=== PATIENT | female | born 1990 | race Caucasian/White ===

== ENCOUNTER 2017-10-17 09:57 | Emergency (ER) | payer OTHER ==
[2017-10-17 10:40] VITALS: BP 115/84; PULSE 76; TEMP 98.5; BMI 26.6
[2017-10-17] MEDS ORDERED: predniSONE 20 MG TABLET (UD) PO ONE (10:43)
[2017-10-17] MEDS ORDERED: ALBUTEROL SO4 2.5/IPRATROPIUM 0.5 INH SOL 3 ML VIAL.NEB. NEB ONE ×4 (10:43→12:05)
[2017-10-17] MEDS ORDERED: predniSONE 20 MG TABLET (UD) ONE (10:46)
--- NOTE | 2017-10-17 10:46 | PDOC ---
History of Present Illness - General Chief Complaint: Cold Symptoms Stated Complaint: COLD SYMPTOMS Time Seen by Provider: 10/17/17 10:25 History Source: Patient Exam Limitations: No Limitations - History of Present Illness Initial Comments: 10/17/17 10:43 Patient came to emergency department with complaints of persistent cough, fevers , headache and congested pain, and sore throat coughing. seen her PMD on Wednesday who prescribed promethazine and Zithromax. Has been taking and is on the last day today but does not feel she is improved. has been using all vwht-taa-lugouis medications including NyQuil and DayQuil ibuprofen for cough and cold and grandmother's recipes but still no improvement. Else at home is sick, is not a smoker no alcohol or other drug use Timing/Duration: reports: constant, getting worse Severity: reports: moderate Modifying Factors: improves with: albuterol inhaler Associated Symptoms: reports: chest pain/soreness, cough, nasal congestion, nasal drainage, sore throat, wheezing Past History - Travel Traveled outside of the country in the last 30 days: No Close contact w/someone who was outside of country & ill: No - Past Medical History Allergies/Adverse Reactions: Allergies Allergy/AdvReac Type Severity Reaction Status Date / Time iodine Allergy Verified 10/17/17 10:03 Penicillins Allergy Verified 10/17/17 10:03 sulfamethoxazole Allergy Verified 10/17/17 10:03 [From Bactrim] trimethoprim [From Bactrim] Allergy Verified 10/17/17 10:03 Home Medications: Ambulatory Orders Albuterol Sulfate Inhaler - [Ventolin HFA Inhaler -] 1 - 2 inh PO Q4H #1 inhaler 10/17/17 Cetirizine HCl [Zyrtec -] 10 mg PO DAILY #30 tablet 10/17/17 predniSONE [Deltasone -] 20 mg PO BID #8 tablet 10/17/17 Cancer: Yes (Osteosarcoma) COPD: No - Suicide/Smoking/Psychosocial Hx Smoking History: Never smoked Hx Alcohol Use: No Drug/Substance Use Hx: No Substance Use Type: Marijuana Hx Substance Use Treatment: No Respiratory Specific PMHX - Complaint Specific PMHX Bronchitis: No Pneumonia: No Review of Systems - Review of Systems Able to Perform ROS?: Yes Is the patient limited Romansh proficient: Yes Constitutional: Yes: Symptoms Reported HEENTM: Yes: See HPI, Nose Pain, Nose Congestion, Difficulty Swallowing. No: Symptoms Reported Respiratory: Yes: Symptoms reported, See HPI, Cough, Wheezing : No: Symptoms Reported Musculoskeletal: Yes: Symptoms Reported, See HPI, Joint Pain Integumentary: Yes: See HPI. No: Symptoms Reported All Other Systems: Reviewed and Negative *Physical Exam - Vital Signs Last Vital Signs Temp Pulse Resp BP Pulse Ox 98.5 F 76 15 115/84 98 10/17/17 10:04 10/17/17 10:04 10/17/17 10:04 10/17/17 10:10/17/17 10:04 - Physical Exam General Appearance: Yes: Nourished, Appropriately Dressed, Apparent Distress, Mild Distress HEENT: positive: ANT, TMs Normal (congested , landmarks easily visualized ), Rhinorrhea, Sinus Tenderness. negative: Pharynx Normal Neck: positive: Supple, Lymphadenopathy (R), Lymphadenopathy (L) Respiratory/Chest: positive: Chest Tender, Wheezing. negative: Lungs Clear, Normal Breath Sounds Gastrointestinal/Abdominal: positive: Normal Bowel Sounds, Soft Musculoskeletal: positive: Normal Inspection Extremity: positive: Normal Capillary Refill, Normal Inspection Integumentary: positive: Normal Color, Dry, Warm, Pale Neurologic: positive: prepared foods supervisor II-XII NML intact, Fully Oriented, Alert, Normal Mood/ Affect, Normal Response, Motor Strength 5/5 ED Treatment Course - RADIOLOGY Radiology Studies Ordered: Category Date Time Status CHEST PA & LAT [RAD] Stat Radiology 10/17/17 10:43 Ordered Progress Note - Progress Note Progress Note: ALLERGIC rhinitis with bronchitis. We will have complete antibiotics, and add prednisone and albuterol as well as antihistamines Medical Decision Making - Medical Decision Making 10/17/17 12:12 Chest x-ray negative for infiltrates or pathology, states feels slightly improved after DuoNeb nebs 2 and prednisone. We'll continue albuterol inhaler, short course of prednisone, have complete Zithromax and add antihistamine. Patient encouraged to follow up with PMD tomorrow for further evaluation and potential further treatment. *DC/Admit/Observation/Transfer Diagnosis at time of Disposition: Bronchitis Allergic rhinitis Qualifiers: Allergic rhinitis trigger: pollen Allergic rhinitis seasonality: seasonal Qualified Code(s): J30.1 - Allergic rhinitis due to pollen - Discharge Dispostion Condition at time of disposition: Stable Decision to Admit order: No - Referrals Referrals: Abram Cervantes MD [Primary Care Provider] - - Patient Instructions Printed Discharge Instructions: DI for Acute Bronchitis Additional Instructions: Rest, drink lots of fluids: Teas, water, soups, Pedialyte Saltwater gargles Steamy showers/seem to face break up mucus Avoid contact with others until fevers and cough resolved Lots of handwashing and good hygiene Continue [id number] medications for symptomatic relief Tylenol or Motrin for fever and pain Continue albuterol nebulizers every 4-6 hours for the next 2 days then as needed for continued cough Continue antihistamines daily until ALLERGY season is over Prednisone as directed until completed Followup with private physician in one to 2 days Return to emergency department / pediatric hospital for worsened symptoms, fevers, dehydration - Post Discharge Activity Forms/Work/School Notes: Back to Work
[2017-10-17] MEDS ORDERED: IBUPROFEN 600 MG TABLET (FP) PO ONE ×2 (11:01)
== END 2017-10-17 12:17 | disposition home or self-care (01) ==
LOC: JER 09:57 → JERFT 09:57
PROC: 3E0F7GC Introduction of Other Therapeutic Substance into Respiratory Tract, Via Natural or Artificial Opening (ICD-10-PCS; principal; 2017-10-17)
PROC: 3E0F7GC Introduction of Other Therapeutic Substance into Respiratory Tract, Via Natural or Artificial Opening (ICD-10-PCS; 2017-10-17)
DX: J20.9 Acute bronchitis, unspecified (principal); J30.1 Allergic rhinitis due to pollen
CPT/HCPCS: 71046-TC-FY; 84703; 94640; 99281-25; J7620

== ENCOUNTER 2018-06-28 12:51 | Emergency (ER) | payer OTHER ==
[2018-06-28 13:14] VITALS: BP 134/74; PULSE 80; TEMP 98.3; BMI 27.3
--- NOTE | 2018-06-28 14:05 | PDOC ---
History of Present Illness <Shelby Corcoran - Last Filed: 06/28/18 18:55> - History of Present Illness Initial Comments: 06/28/18 14:03 28 yo F with h/o left hip osteosarcoma s/p arthroplasty, who p/w vaginal bleed, lower abdominal pain. Patient reports dark red blood, and bright red blood beginning 06/25/18, with absent clotting. Also endorses lower abdominal and pelvic cramping pain intermittently, with Reports last LMP 06/11/18. Cramping consistent with typical menstrual cramping. Denies vaginal itching/burning. Patient denies RUIZ, vision change, palpitations, cough, wheezing, leg pain/ swelling, F,C, CP, SOB, urinary complaints, hematruia, BPR, diarrhea, constipation, lightheadedness, weakness, sensory changes. PMHx: as noted above. Denies h/o abdominal surgery. ROS: as noted SHx: + Recreational marijuanna use. Denies tobacco use. Social Etoh. Patient sexually active with one male partner. Denies condom/barrier protection. Denies h/o STIs. , aborta 2. IUD 4 years. Allergies: NKDA <Med Eaton - Last Filed: 06/28/18 19:50> - General Chief Complaint: Vaginal Bleeding Stated Complaint: Vaginal Bleeding Time Seen by Provider: 06/28/18 13:44 Past History <Shelby Corcoran - Last Filed: 06/28/18 18:55> - Past Medical History Cancer: Yes (Osteosarcoma) COPD: No - Immunization History Immunization Up to Date: Yes - Suicide/Smoking/Psychosocial Hx Smoking History: Never smoked Information on smoking cessation initiated: No Hx Alcohol Use: No Drug/Substance Use Hx: Yes (MARIJUANA) Substance Use Type: Marijuana Hx Substance Use Treatment: No <Med Eaton - Last Filed: 06/28/18 19:50> - Past Medical History Allergies/Adverse Reactions: Allergies Allergy/AdvReac Type Severity Reaction Status Date / Time iodine Allergy Verified 06/28/18 13:10 Penicillins Allergy Verified 06/28/18 13:10 sulfamethoxazole Allergy Verified 06/28/18 13:10 [From Bactrim] trimethoprim [From Bactrim] Allergy Verified 06/28/18 13:10 Home Medications: Ambulatory Orders Albuterol Sulfate Inhaler - [Ventolin HFA Inhaler -] 1 - 2 inh PO Q4H #1 inhaler 10/17/17 Cetirizine HCl [Zyrtec -] 10 mg PO DAILY #30 tablet 10/17/17 predniSONE [Deltasone -] 20 mg PO BID #8 tablet 10/17/17 Review of Systems - Review of Systems Comments:: 06/28/18 14:03 GENERAL/CONSTITUTIONAL: No fever or chills. No weakness. HEAD, EYES, EARS, NOSE AND THROAT: No change in vision. No ear pain or discharge. No sore throat. CARDIOVASCULAR: No chest pain or shortness of breath RESPIRATORY: No cough, wheezing, or hemoptysis. GASTROINTESTINAL: No nausea, vomiting, diarrhea or constipation. GENITOURINARY: + Abdominal pain, vaginal bleeding. No dysuria, frequency, or change in urination. MUSCULOSKELETAL: No joint or muscle swelling or pain. No neck or back pain. SKIN: No rash NEUROLOGIC: No headache, vertigo, loss of consciousness, or change in strength/ sensation. ENDOCRINE: No increased thirst. No abnormal weight change HEMATOLOGIC/LYMPHATIC: No anemia, easy bleeding, or history of blood clots. ALLERGIC/IMMUNOLOGIC: No hives or skin allergy. <Med Eaton - Last Filed: 06/28/18 19:50> *Physical Exam - Vital Signs Last Vital Signs Temp Pulse Resp BP Pulse Ox 98.3 F 80 16 134/74 100 06/28/18 13:10 06/28/18 13:10 06/28/18 13:10 06/28/18 13:10 06/28/18 13:10 <Shelby Corcoran - Last Filed: 06/28/18 18:55> - Vital Signs Last Vital Signs Temp Pulse Resp BP Pulse Ox 98.3 F 80 16 134/74 100 06/28/18 13:10 06/28/18 13:10 06/28/18 13:10 06/28/18 13:10 06/28/18 13:10 - Physical Exam Comments: 06/28/18 14:04 GENERAL: Awake, alert, and fully oriented, in no acute distress HEAD: No signs of trauma, normocephalic, atraumatic EYES: PERRLA, EOMI, sclera anicteric, conjunctiva clear ENT: Auricles normal inspection, hearing grossly normal, nares patent, oropharynx clear without exudates. Moist mucosa NECK: Normal ROM, supple, no lymphadenopathy, JVD, or masses LUNGS: No distress, speaks full sentences, clear to auscultation bilaterally HEART: Regular rate and rhythm, normal S1 and S2, no murmurs, rubs or gallops, peripheral pulses normal and equal bilaterally. ABDOMEN: Soft, nontender, normoactive bowel sounds. No guarding, no rebound. No masses GENITOURINARY: Nml appearing external genitalia. cervical os closed.+ blood in vaginal vault. No pooling. Absent discharge in vaginal vault. absent adenexal ttp. neg CMT on BM. Chaperoned by September PGY3 EXTREMITIES : Normal inspection, Normal range of motion, no edema. No clubbing or cyanosis. SKIN: Warm, Dry, normal turgor, no rashes or lesions noted <Med Eaton - Last Filed: 06/28/18 19:50> Moderate Sedation - Procedure Monitoring Vital Signs: Procedure Monitoring Vital Signs Temperature 98.3 F 06/28/18 13:10 Pulse Rate 80 06/28/18 13:10 Respiratory Rate 16 06/28/18 13:10 Blood Pressure 134/74 06/28/18 13:10 O2 Sat by Pulse Oximetry (%) 100 06/28/18 13:10 <Shelby Corcoran - Last Filed: 06/28/18 18:55> - Procedure Monitoring Vital Signs: Procedure Monitoring Vital Signs Temperature 98.3 F 06/28/18 13:10 Pulse Rate 80 06/28/18 13:10 Respiratory Rate 16 06/28/18 13:10 Blood Pressure 134/74 06/28/18 13:10 O2 Sat by Pulse Oximetry (%) 100 06/28/18 13:10 <Med Eaton - Last Filed: 06/28/18 19:50> ED Treatment Course - LABORATORY CBC & Chemistry Diagram: 06/28/18 15:28 06/28/18 15:28 - ADDITIONAL ORDERS Additional order review: Laboratory Results 06/28/18 06/28/18 16:16 15:28 Sodium 138 Potassium 3.9 Chloride 103 Carbon Dioxide 27 Anion Gap 8 BUN 12 Creatinine 0.8 Creat Clearance w eGFR > 60 Random Glucose 89 Calcium 9.0 Total Bilirubin 0.5 AST 29 ALT 33 Alkaline Phosphatase 86 Total Protein 8.1 Albumin 4.2 Urine Color Ltyellow Urine Appearance Clear Urine pH 7.0 Ur Specific [place] 1.025 Urine Protein Negative Urine Glucose (UA) Negative Urine Ketones Negative Urine Blood 3+ H Urine Nitrite Negative Urine Bilirubin Negative Urine Urobilinogen 2.0 H Ur Leukocyte Esterase Negative Urine HCG, Qual Negative 06/28/18 15:28 RBC 4.91 MCV 76.5 L MCHC 32.5 RDW 14.3 MPV 8.3 D Neutrophils % 56.8 Lymphocytes % 31.9 Monocytes % 7.9 Eosinophils % 2.9 Basophils % 0.5 - Medications Given in the ED: ED Medications Discontinued Medications Generic Name Dose Route Start Last Admin Trade Name Yogi PRN Reason Stop Dose Admin Acetaminophen 1,000 mg 06/28/18 14:28 06/28/18 15:35 Ofirmev Injection - IVPB 06/28/18 14:29 1,000 mg ONCE ONE Administration Sodium Chloride 1,000 mls @ 1,000 mls/hr 06/28/18 14:28 06/28/18 15:35 Normal Saline - IV 06/28/18 15:27 1,000 mls/hr ASDIR STA Administration Ondansetron HCl 4 mg 06/28/18 14:28 06/28/18 15:35 Zofran Injection IVPUSH 06/28/18 14:29 4 mg ONCE ONE Administration <Shelby Corcoran - Last Filed: 06/28/18 18:55> - LABORATORY CBC & Chemistry Diagram: 06/28/18 15:28 06/28/18 15:28 - ADDITIONAL ORDERS Additional order review: 06/28/18 18:14 Pelvis ultrasound, transabdominal and transvaginal LMP is 06/07/2018 No prior is available for comparison. The uterus is enlarged measuring 11.3 x 7.7 cm in sagittal and AP dimension. There is a large mass lesion with heterogeneous echotexture at the fundus measuring 8 x 6.5 cm compatible with a fibroid. A smaller right lateral hypoechoic mass is present measuring 2.4 cm compatible with a fibroid. Notes is made of an intrauterine device in the lower uterine segment. No gross intrauterine gestation sac is identified. Partial visualization of the endometrial stripe measuring 4.5 mm in thickness. There is a complex Nabothian cyst in the cervix measuring 1.3 x 0.9 cm. Normal appearing right ovary measuring 4.8 x 2 cm with a few small simple cysts/follicles and normal vascular flow, arterial and venous. Normal-appearing left ovary measuring 3.5 x 1.5 cm with a few small simple cysts/follicles and normal vascular flow, arterial and venous. There is no free fluid in the cul-de-sac Impression: Enlarged fibroid uterus, as described above. Largest fibroid is at the fundus measuring 8 cm in maximum dimension with another smaller right lateral myometrial mass/fibroid present, as described above. Partial visualization of the endometrial stripe without thickening. An intrauterine device is present in the in the lower uterine segment with apparent extension to the cervical canal. Correlate clinically for further evaluation. No intrauterine gestation sac is identified. No adnexal mass is seen. Correlation with serial quantitative serum beta hCG is recommended to determine further evaluation and follow-up, in view of the clinical history. Reported By: Steven Serrato MD 06/28/181751 Med Eaton Technologist: Latasha Bailey Transcribed Date /Time: 06/28/181751 Box Blank Machine Operator Helper: Steven Serrato Printed Date/Time: By: <Med Eaton - Last Filed: 06/28/18 19:50> Medical Decision Making - Medical Decision Making 06/28/18 14:33 28 yo F with h/o left hip osteosarcoma s/p arthroplasty, who p/w vaginal bleed, lower abdominal pain. Vitals wnl, AF, A&Ox3. Will asses for IUP. Will consider ectopic , ovarian torsion, PID, cystitis. No evidence of colitis, pyelonephrits, obstructive uropathy/nephrolithiasis. ED Course: CBC,CMP,UA,UCX,HCG,GC 06/28/18 15:30 Toradol 06/28/18 17:09 CMP: Unremarkable 06/28/18 18:15 TVUS: Enlarged fibroid uterus, as described above. Largest fibroid is at the fundus measuring 8 cm in maximum dimension with another smaller right lateral myometrial mass/fibroid present, as described above. Partial visualization of the endometrial stripe without thickening. An intrauterine device is present in the in the lower uterine segment with apparent extension to the cervical canal. Correlate clinically for further evaluation. No intrauterine gestation sac is identified. No adnexal mass is seen. Correlation with serial quantitative serum beta hCG is recommended to determine further evaluation and follow-up, in view of the clinical history. Patient advised to f/u with navy senior officer 06/28/18 19:50 UA: Neg HCG: Neg Patient pain improved stable for d/c with return precautions. <Med Eaton - Last Filed: 06/28/18 19:50> *DC/Admit/Observation/Transfer - Discharge Dispostion Decision to Admit order: No <Shelby Corcoran - Last Filed: 06/28/18 18:55> - Attestations Physician Attestion: 06/28/18 14:04 I attest to the information provided in this note. <Med Eaton - Last Filed: 06/28/18 19:50> Diagnosis at time of Disposition: Abnormal uterine and vaginal bleeding, unspecified - Discharge Dispostion Disposition: HOME Condition at time of disposition: Good - Referrals Referrals: Abram Cervantes MD [Primary Care Provider] - Thuy Alvarenga MD [Staff Physician] - - Patient Instructions Printed Discharge Instructions: DI for Uterine Fibroids Additional Instructions: Please return to the emergency department with any new or worsening symptoms or concerns. Please follow up with your primary care physician within 72 hours. Please follow up with Ob/ Hand Etcher Helper within 72 hours for IUD placement as discussed. - Post Discharge Activity
--- NOTE | 2018-06-28 14:07 | PDOC ---
Attending Attestation - HPI HPI: 06/28/18 15:30 The patient is a 28 year old female with a significant PMH of left hip osteosarcoma who presents to the emergency department with vaginal bleeding and associated lower abdominal pain. Patient reports that 3 days ago she noticed dark brown blood, which is now bright red. Patient was concerned as her LMP was on 06/07/18. Patient states the lower abdominal pain is radiating to the pelvic pain. Patient reports the lower abdominal pain is similar in severity to her menstrual cramps, but reports the vaginal bleeding is heavier than normal menstrual cycles. Patient has been using a superplus tampon every 2 hours. Patient is also complaining of nausea and 1 episode of NB, NB vomit 3 days ago. Patient has an IUD in place for the past 5 years. She is sexually active with 1 partner, and they occasionally use condoms. Patient has 2 abortions in the past. No prior abdominal surgeries. The patient denies chest pain, shortness of breath, headache and dizziness. Denies fever, chills, nausea, vomit, diarrhea and constipation. Denies dysuria, frequency, urgency and hematuria. Allergies: NKA Past surgical history: None reported. Social history: No reported alcohol, drug or cigarette use. PCP: Dr. Abram Cervantes - Physicial Exam PE: 06/28/18 15:41 ADULT EXAM GENERAL: Awake, alert, and fully oriented, in no acute distress LUNGS: Breath sounds equal, clear to auscultation bilaterally. No wheezes, and no crackles HEART: Regular rate and rhythm, normal S1 and S2, no murmurs, rubs or gallops ABDOMEN: Soft, nontender, normoactive bowel sounds. No guarding, no rebound. No masses EXTREMITIES: Normal range of motion, no edema. No clubbing or cyanosis. No cords, erythema, or tenderness NEUROLOGICAL: Cranial nerves II through XII grossly intact. Normal speech, normal gait SKIN: Warm, Dry, normal turgor, no rashes or lesions noted.
[2018-06-28] MEDS ORDERED: ACETAMINOPHEN 1000 MG/100 ML VIAL (NON FORMULARY) IVPB ONE (14:28)
[2018-06-28] MEDS ORDERED: ONDANSETRON 4 MG/2 ML VIAL IVPUSH ONE (14:28)
[2018-06-28] MEDS ORDERED: SODIUM CHLORIDE 1,000 ML IV STA (14:28)
[2018-06-28] MEDS ORDERED: ONDANSETRON 4 MG/2 ML VIAL ONE (15:25)
[2018-06-28] MEDS ORDERED: ACETAMINOPHEN INJECTION 100 ML IVPB ONE (15:25)
[2018-06-28] MEDS ORDERED: KETOROLAC TROMETHAMINE 15 MG/ML VIAL IVPUSH ONE (15:29)
[2018-06-28] MEDS ORDERED: KETOROLAC TROMETHAMINE 30 MG/1 ML VIAL IVPUSH ONE (15:30)
[2018-06-28 15:38] LABS: BASO % 0.5 % (0-2.0); EOS % 2.9 % (0-4.5); HEMATOCRIT 37.5 % (32.4-45.2); HEMOGLOBIN 12.2 GM/dL (10.7-15.3); LYMPH % 31.9 % (8-40); MCH 24.8 pg (25.7-33.7); MCHC 32.5 g/dl (32.0-36.0); MEAN CELL VOLUME 76.5 fl (80-96); MEAN PLT VOLUME 8.3 fl (7.5-11.1); MONO % 7.9 % (3.8-10.2); NEUT % 56.8 % (42.8-82.8); PLATELET COUNT 263 K/MM3 (134-434); RBC 4.91 M/mm3 (3.60-5.2); RDW 14.3 % (11.6-15.6); WHITE BLOOD COUNT 4.9 K/mm3 (4.0-10.0)
[2018-06-28 16:06] LABS: ALBUMIN 4.2 g/dl (3.4-5.0); ALK PHOS 86 U/L (45-117); ANION GAP 8 MMOL/L (8-16); BILIRUBIN,TOTAL 0.5 mg/dL (0.2-1); BLOOD UREA NITROGEN 12 mg/dL (7-18); CHLORIDE 103 mmol/L (98-107); CO2 27 mmol/L (21-32); CREATININE 0.8 mg/dL (0.55-1.3); GLUCOSE,RANDOM 89 mg/dL (74-106); POTASSIUM 3.9 mmol/L (3.5-5.1); SGOT/AST 29 U/L (15-37); SGPT/ALT 33 U/L (13-61); SODIUM 138 mmol/L (136-145); TOT PROT 8.1 g/dl (6.4-8.2)
[2018-06-28 18:46] LABS: URINE APPEARANCE CLEAR; URINE BILIRUBIN NEGATIVE (<2.0 mg/dL); URINE COLOR LTYELLOW; URINE GLUCOSE (UA) NEGATIVE (NEGATIVE); URINE KETONE NEGATIVE (NEGATIVE); URINE LEUK ESTERASE NEGATIVE (NEGATIVE); URINE NITRITE NEGATIVE (NEGATIVE); URINE PROTEIN NEGATIVE (NEGATIVE)
[2018-06-28 18:48] LABS: HCG,QUALITATIVE URINE Negative
[2018-06-28] MEDS ORDERED: KETOROLAC TROMETHAMINE 30 MG/1 ML VIAL ONE (18:49)
[2018-06-28 18:57] LABS: EPI CELLS RARE /HPF (FEW)
== END 2018-06-28 20:15 | disposition home or self-care (01) ==
LOC: JER 12:51
DX: D25.9 Leiomyoma of uterus, unspecified (principal)
CPT/HCPCS: 36415; 76830-TC; 80053; 81003; 81015; 84703; 85025; 87086; 87491; 87591; 99281-25; J0131; J7030

== ENCOUNTER 2018-07-20 05:03 | Inpatient (IN) | payer OTHER ==
[2018-07-18 15:35] VITALS: BMI 30.7
--- NOTE | 2018-07-20 06:51 | HP ---
Admitting History and Physical - Past Medical History ASTROBIOLOGIST: Yes: Other (Bertolott's syndrome) Cardiovascular: Yes: AFIB, Aneurysm. No: Aortic Insufficiency, Aortic Stenosis , CAD, CHF, Deep Vein Thrombosis, HTN, Hyperlipdemia, [place], Mitral Insufficiency, Mitral Stenosis, Murmur, Pulmonary Hypertension, Other Gastrointestinal: Yes: Other (NAUSEA FOR TWO WEEKS ASSOCIATED WITH VERTIGO) ...LMP: 07/13/18 ...LMP Comment: "continuous bleeding" Heme/Onc: Yes: Other (Osteocarcoma) Musculoskeletal: Yes: Chronic low back pain, Other (BERTOLOTTI'S SYNDROME) ENT: Yes: Other (VERTIGO FOR 2 WEEKS FOLLOWED BY NAUSEA, RESOLVES WITH VOMITING AND LAYING FLAT FOR 10 TO 15 MINUTES. ) - Past Surgical History Past Surgical History: Yes: None - Smoking History Smoking history: Never smoked Have you smoked in the past 12 months: No - Alcohol/Substance Use Hx Alcohol Use: Yes (socially) History of Substance Use: reports: Marijuana Home Medications - Allergies Allergies/Adverse Reactions: Allergies Allergy/AdvReac Type Severity Reaction Status Date / Time iodine Allergy "can't Verified 07/18/18 15:36 breath" Penicillins Allergy "rash" Verified 07/18/18 15:36 sulfamethoxazole Allergy "rash" Verified 07/18/18 15:36 [From Bactrim] trimethoprim [From Bactrim] Allergy Verified 07/18/18 15:36 - Home Medications Home Medications: Ambulatory Orders NK [No Known Home Medication] 07/18/18 Family Disease History - Family Disease History Family Disease History: Other: Mother (MULTIPLE SCLEROSIS/VERTIGO)
--- NOTE | 2018-07-20 10:12 | HP ---
Admitting History and Physical - Admission Chief Complaint: Abdominal and back pain, fibroids History of Present Illness: PT is 28 y/o femsarah who presented to the ER last month with abdominal pain and upon ultrasound examination was found to have a large fundal uterine fibroid. Pt was seen in my office for evaluation and she was counseled on options and elected to undergo abdominal myomectomy. The patient has h/o osteosarcoma 10 years ago and she is s/p chemotherapy. SHe also has h/o knee surgery and hip surgery. Otherwise she denied any medical history. History Source: Patient, Medical Record Limitations to Obtaining History: No Limitations - Past Medical History Cardiovascular: No: AFIB, Aneurysm, Aortic Insufficiency, Aortic Stenosis, CAD, CHF, Deep Vein Thrombosis, HTN, Hyperlipdemia, [place], Mitral Insufficiency, Mitral Stenosis, Murmur, Pulmonary Hypertension, Other Pulmonary: No: Asthma Gastrointestinal: No: GERD Reproductive: Yes: Fibroids. No: Ectopic ...LMP: 07/13/18 ...: No ...: 0 ...Para: 0 Heme/Onc: Yes: Other (Osteocarcoma) Musculoskeletal: Yes: Chronic low back pain, Other (h/o osteosarcoma as teen, s/ p chemotherapy) - Past Surgical History Additional Past Surgical History: knee and hip surgery - Smoking History Smoking history: Never smoked Have you smoked in the past 12 months: No - Alcohol/Substance Use Hx Alcohol Use: Yes (socially) History of Substance Use: reports: Marijuana - Social History ADL: Independent History of Recent Travel: No Home Medications - Allergies Allergies/Adverse Reactions: Allergies Allergy/AdvReac Type Severity Reaction Status Date / Time iodine Allergy "can't Verified 07/20/18 10:35 breath" Penicillins Allergy "rash" Verified 07/20/18 10:35 sulfamethoxazole Allergy "rash" Verified 07/20/18 10:35 [From Bactrim] trimethoprim [From Bactrim] Allergy Verified 07/20/18 10:35 - Home Medications Home Medications: Ambulatory Orders NK [No Known Home Medication] 07/18/18 Family Disease History - Family Disease History Family Disease History: Other: Mother (MULTIPLE SCLEROSIS/VERTIGO) Review of Systems - Review of Systems Constitutional: reports: No Symptoms Eyes: reports: No Symptoms HENT: reports: No Symptoms Neck: reports: No Symptoms Cardiovascular: reports: No Symptoms Respiratory: reports: No Symptoms Genitourinary: reports: Vaginal Bleeding, Other (pelvic pain and back pain) Breasts: reports: No Symptoms Reported Musculoskeletal: reports: No Symptoms Integumentary: reports: No Symptoms Neurological: reports: No Symptoms Psychiatric: reports: No Symptoms Physical Examination Vital Signs: Vital Signs Temperature 98.3 F 07/20/18 09:47 Pulse Rate 76 07/20/18 09:47 Respiratory Rate 16 07/20/18 09:47 Blood Pressure 119/80 07/20/18 09:47 O2 Sat by Pulse Oximetry (%) 99 07/20/18 09:46 Constitutional: Yes: Well Nourished, No Distress, Calm Eyes: Yes: Conjunctiva Clear, EOM Intact HENT: Yes: Atraumatic, Normocephalic Neck: Yes: Trachea Midline Cardiovascular: Yes: Regular Rate and Rhythm Respiratory: Yes: Regular Gastrointestinal: Yes: Normal Bowel Sounds Extremities: Yes: WNL Edema: No Neurological: Yes: Alert, Oriented Psychiatric: Yes: Alert, Oriented Imaging - Results Ultrasound: Report Reviewed, Image Reviewed (from 06/28/18) Problem List - Problems (1) Abnormal uterine and vaginal bleeding, unspecified Code(s): N93.9 - ABNORMAL UTERINE AND VAGINAL BLEEDING, UNSPECIFIED (2) History of osteosarcoma Code(s): Z85.830 - PERSONAL HISTORY OF MALIGNANT NEOPLASM OF BONE (3) Leiomyoma Code(s): D21.9 - BENIGN NEOPLASM OF CONNECTIVE AND OTHER SOFT TISSUE, UNSP Assessment/Plan Plan for abdominal myomectomy risks/benefits/alternatives discussed risk of bleeding/infection/damage to nearby organs or surrounding structures discussed with pt in detail, pt aware questions answered consents signed 07/18/18 NPO arguello anesthesia to evaluate
[2018-07-20] MEDS ORDERED: ROCURONIUM BROMIDE 50 MG/5 ML VIAL ONE (11:32)
[2018-07-20] MEDS ORDERED: fentaNYL CITRATE 250 MCG/5 ML VIAL ONE ×2 (11:32→12:47)
[2018-07-20] MEDS ORDERED: MIDAZOLAM HCL 2 MG/2 ML SINGLE DOSE VIAL ONE ×2 (11:32→11:38)
[2018-07-20] MEDS ORDERED: PROPOFOL 20 ML ONE ×2 (11:32)
[2018-07-20] MEDS ORDERED: LIDOCAINE HCL/PF 2% SDV 5ML VIAL ONE (11:32)
[2018-07-20] MEDS ORDERED: ROPIVACAINE HCL 0.5% 30ML VIAL ONE (11:36)
[2018-07-20] MEDS ORDERED: oxyCODONE HCL 5 MG TABLET PO PRN (11:37)
[2018-07-20] MEDS ORDERED: CLINDAMYCIN 900 MG PREMIX BAG IVPB ONE (12:36)
[2018-07-20] MEDS ORDERED: CLINDAMYCIN PHOSPHATE 600 MG/4 ML VIAL ONE (12:36)
[2018-07-20] MEDS ORDERED: DEXAMETHASONE SOD PHOSPHATE 4 MG/1 ML VIAL ONE (13:04)
[2018-07-20] MEDS ORDERED: GLYCOPYRROLATE 0.2 MG/1 ML VIAL ONE (13:04)
[2018-07-20] MEDS ORDERED: NEOSTIGMINE METHYLSULFATE 0.5 MG/ML - 10 ML MDV ONE (13:04)
[2018-07-20] MEDS ORDERED: ONDANSETRON 4 MG/2 ML VIAL IVPUSH PRN (13:59)
[2018-07-20] MEDS ORDERED: LACTATED RINGERS SOLUTION 1,000 ML IV SCH (14:00)
[2018-07-20] MEDS ORDERED: HYDROmorphone *PCA* 10MG/50ML DISP.SYRIN PCA SCH (14:00)
--- NOTE | 2018-07-20 14:20 | OP ---
Operative Note - Note: Operative Date: 07/20/18 Pre-Operative Diagnosis: Leiomyoma uterus Operation: Abdominal myomectomy Post-Operative Diagnosis: Same as Pre-op Surgeon: Yumiko Morgan Heel Gouger: Tawny Beltrán Anesthesiologist/EMERGENCY MEDICAL TECHNICIAN/DRIVER: Chela Perkins Anesthesia: General Specimens Removed: uterine fibroids x 3 Estimated Blood Loss (mls): 300 Drains, Volume Out (mls): 300 (urine) Fluid Volume Replaced (mls): 1,500 Operative Report Dictated: Yes
--- NOTE | 2018-07-20 14:21 | SURG ---
Surgery Master [address] Security Note Master [address] Security: Tawny Beltrán PA-C Date of Service: 07/20/18 Diagnosis: Leiomyoma uterus Procedure: abdominal myomectomy I was present for the entirety of the operative procedure. For further detail, please refer to operative report. Visit type - Case Type Case Type: Scheduled - Emergency Emergency Visit: No - New patient This patient is new to me today: Yes Date on this admission: 07/20/18
[2018-07-20] MEDS ORDERED: PCA PUMP KEY 1 EACH EACH ONE (15:55)
[2018-07-20 18:56] LABS: BASO % 0.1 % (0-2.0); EOS % 0.1 % (0-4.5); HEMATOCRIT 31.1 % (32.4-45.2); HEMOGLOBIN 10.2 GM/dL (10.7-15.3); LYMPH % 4.9 % (8-40); MCHC 32.8 g/dl (32.0-36.0); MEAN CELL VOLUME 76.2 fl (80-96); MEAN PLT VOLUME 8.5 fl (7.5-11.1); MONO % 4.8 % (3.8-10.2); NEUT % 90.1 % (42.8-82.8); PLATELET COUNT 212 K/MM3 (134-434); RBC 4.08 M/mm3 (3.60-5.2); RDW 13.7 % (11.6-15.6); WHITE BLOOD COUNT 11.3 K/mm3 (4.0-10.0)
[2018-07-20] MEDS: CLINDAMYCIN 600MG PREMIX IVPB 600 MG/50 ML BAG IVPB SCH (19:48)
[2018-07-21] MEDS: IBUPROFEN 800 MG/8 ML IJ IVPB PRN ×2 (02:28→13:11)
[2018-07-21] MEDS: CLINDAMYCIN 600MG PREMIX IVPB 600 MG/50 ML BAG IVPB SCH (03:46)
[2018-07-21 07:22] LABS: BASO % 0.2 % (0-2.0); EOS % 0.2 % (0-4.5); HEMATOCRIT 28.8 % (32.4-45.2); HEMOGLOBIN 9.3 GM/dL (10.7-15.3); LYMPH % 16.3 % (8-40); MCH 24.5 pg (25.7-33.7); MCHC 32.2 g/dl (32.0-36.0); MEAN CELL VOLUME 76.2 fl (80-96); MEAN PLT VOLUME 8.5 fl (7.5-11.1); MONO % 13.3 % (3.8-10.2); PLATELET COUNT 209 K/MM3 (134-434); RBC 3.79 M/mm3 (3.60-5.2); RDW 14.2 % (11.6-15.6); WHITE BLOOD COUNT 7.9 K/mm3 (4.0-10.0)
[2018-07-21 08:07] LABS: ALBUMIN 3.2 g/dl (3.4-5.0); ALK PHOS 55 U/L (45-117); ANION GAP 6 MMOL/L (8-16); BILIRUBIN,TOTAL 0.8 mg/dL (0.2-1); BLOOD UREA NITROGEN 10 mg/dL (7-18); CALCIUM 8.4 mg/dL (8.5-10.1); CHLORIDE 100 mmol/L (98-107); CO2 28 mmol/L (21-32); CREATININE 0.6 mg/dL (0.55-1.3); GLUCOSE,RANDOM 85 mg/dL (74-106); POTASSIUM 3.7 mmol/L (3.5-5.1); SGOT/AST 19 U/L (15-37); SGPT/ALT 13 U/L (13-61); SODIUM 134 mmol/L (136-145); TOT PROT 6.1 g/dl (6.4-8.2)
--- NOTE | 2018-07-21 09:04 | PN ---
Progress Note (short form) - Note Progress Note: Surgery POD #1 Abdominal Myomectomy seen ans examined at bedside. Patient states her pain is controlled but she is having a fair amount of gas pain. Her arguello has been removed and she is voiding. Sh has been OOB ambulating without assistance and tolerating her clear liquid diet. Vital Signs Temp 98 F 07/21/18 06:00 Pulse 98 H 07/21/18 06:00 Resp 18 07/21/18 06:00 BP 132/76 07/21/18 06:00 Pulse Ox 98 07/20/18 21:00 Intake & Output 07/20/18 07/20/18 07/21/18 11:59 23:59 11:59 Intake Total 2150 1450 Output Total 1650 3000 Balance 500 -1550 Intake: IV 1900 1200 Lactated Ringers Solution 1200 1,000 ml @ 125 mls/hr IV ASDIR DAVY Rx#: [id number] IVPB 50 250 Oral 200 Output: Urine 1250 3000 Arguello 750 3000 Estimated Blood Loss 400 Other: Voiding Method Indwelling Catheter CBC, BMP 07/21/18 06:07 07/21/18 06:07 PE: A&Ox3, NAD Unlabored resp on RA ABD: obese, soft, ND , with mild incisional tenderness and tenderness to palpation across the lower quadrants appropriate to status. Incision C/D/I with steris strips in place and surrounding tissue intact with no tracking erythema, edema, collection or d/c. Problem List - Problems (1) Leiomyoma Assessment/Plan: POD #1 abdominal myomectomy doing well. 1) Advance to regular diet 2) OOB as tolerated 3) Encourage IS 4) D/c planning for home today if she tolerated diet. Evaluation and plan discussed with Dr Morgan. Code(s): D21.9 - BENIGN NEOPLASM OF CONNECTIVE AND OTHER SOFT TISSUE, UNSP
[2018-07-21] MEDS: SIMETHICONE 80 MG TAB.CHEW (FP) PO PRN ×3 (09:30→23:21)
[2018-07-21] MEDS: ENOXAPARIN NA (PORCINE) 40 MG/0.4 ML DISP.SYRIN SQ SCH (09:31)
[2018-07-21] MEDS ORDERED: PCA PUMP KEY 1 EACH EACH ONE (09:54)
[2018-07-21] MEDS: ACETAMINOPHEN 325 MG TABLET (FP) PO PRN ×3 (11:33→23:21)
[2018-07-21] MEDS: oxyCODONE HCL 5 MG TABLET PO PRN ×3 (11:33→23:22)
[2018-07-21] MEDS: LACTATED RINGERS SOLUTION 1,000 ML IV SCH ×2 (12:00)
[2018-07-21] MEDS ORDERED: BISACODYL 10 MG SUPP.RECT PR ONE (14:35)
[2018-07-21] MEDS: IBUPROFEN 600 MG TABLET (FP) PO PRN (19:42)
[2018-07-22] MEDS: IBUPROFEN 600 MG TABLET (FP) PO PRN (02:03)
[2018-07-22] MEDS: ACETAMINOPHEN 325 MG TABLET (FP) PO PRN ×2 (04:15→10:09)
[2018-07-22] MEDS: oxyCODONE HCL 5 MG TABLET PO PRN (04:16)
[2018-07-22] MEDS: SIMETHICONE 80 MG TAB.CHEW (FP) PO PRN ×2 (04:17→10:12)
[2018-07-22] MEDS ORDERED: SODIUM PHOSPHATE/NA BIPHOS 133 ML ENEMA PR ONE (08:17)
--- NOTE | 2018-07-22 08:20 | PN ---
Progress Note (short form) - Note Progress Note: POD 2, S/p open abdominal myomectomy Pt seen and examined on AM rounds. Endorses abdominal pain from surgical site as well as discomfort from constipation. No Bm x 5 days, requesting enema. Tolerating clears, has been oob to the restroom. Passed flatus x 1. Denies cp/ sob, n/v/d, calf pain. Vital Signs Temp 98.2 F 07/22/18 10:00 Pulse 82 07/22/18 10:00 Resp 20 07/22/18 10:00 BP 112/64 07/22/18 10:00 Pulse Ox 98 07/20/18 21:00 Intake & Output 07/21/18 07/22/18 07/22/18 23:59 11:59 23:59 Intake Total 1250 Output Total 300 Balance -300 1250 Intake: IV 1250 Lactated Ringers Solution 1250 1,000 ml @ 125 mls/hr IV ASDIR DAVY Rx#: [id number] Output: Urine 300 Void 300 Other: Voiding Method Toilet # Unmeasured Voids Void 1 1 CBC, BMP 07/21/18 06:07 07/21/18 06:07 Gen: awake, alert, nad Resp: cta b/l anteriorly, unlabored on RA CV: rrr, s1s2 Abdo: soft, slightly distended, + ttp around incision site (appropriate to status), dressing c/d/i, incision c/d/i with no erythema or drainage. 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 Afebrile, vss. Labs stable Constipation, no BM x 5 days. S/P suppository last night. -Fleet enema ordered -OOB ambulating -Pain regimen as ordered -D/c plan per attending d/w attending Dr Morgan
--- NOTE | 2018-07-22 09:08 | PN ---
Progress Note, Physician Chief Complaint: Pt seen/examined and doing well overall. Ambulating, voiding, passed flatus X 1 s/p suppository. no VB. Hasn't had BM in 5 days, feels uncomfortable. - Current Medication List Current Medications: Active Medications Acetaminophen (Tylenol -) 650 mg PO Q4H PRN PRN Reason: FEVER Last Admin: 07/22/18 04:15 Dose: 650 mg Enoxaparin Sodium (Lovenox -) 40 mg SQ DAILY [facility] Last Admin: 07/21/18 09:31 Dose: 40 mg Fentanyl (Sublimaze Injection -) 50 mcg IVPUSH [id number] PRN PRN Reason: PAIN-PACU ORDER X 4 DOSES ONLY Last Admin: 07/20/18 14:35 Dose: 50 mcg Lactated Ringer's (Lactated Ringers Solution) 1,000 mls @ 125 mls/hr IV ASDIR [facility] Last Admin: 07/21/18 12:00 Dose: 125 mls/hr Ondansetron HCl (Zofran Injection) 4 mg IVPUSH Q6H PRN PRN Reason: NAUSEA AND/OR VOMITING Last Admin: 07/21/18 12:05 Dose: 4 mg Oxycodone HCl (Roxicodone -) 10 mg PO Q4H PRN PRN Reason: PAIN LEVEL 7 - 10 Last Admin: 07/22/18 04:16 Dose: 10 mg Oxycodone HCl (Roxicodone -) 5 mg PO Q4H PRN PRN Reason: PAIN LEVEL 4 - 6 Simethicone (Mylicon -) 80 mg PO Q4H PRN PRN Reason: GAS Last Admin: 07/22/18 04:17 Dose: 80 mg - Objective Vital Signs: Vital Signs Temperature 98 F 07/22/18 08:44 Pulse Rate 89 07/22/18 08:44 Respiratory Rate 20 07/22/18 08:44 Blood Pressure 118/56 L 07/22/18 08:44 O2 Sat by Pulse Oximetry (%) 98 07/20/18 21:00 Constitutional: Yes: Well Nourished, No Distress HENT: Yes: WNL, Atraumatic, Normocephalic Cardiovascular: Yes: Regular Rate and Rhythm Respiratory: Yes: Regular Gastrointestinal: Yes: Soft, Tenderness (post op tenderness). No: Vomiting Genitourinary: No: Vaginal Bleeding Wound/Incision: Yes: Clean/Dry, Well Approximated Neurological: Yes: Alert, Oriented Psychiatric: Yes: Alert, Oriented Labs: CBC, BMP 07/21/18 06:07 07/21/18 06:07 Problem List - Problems (1) Abnormal uterine and vaginal bleeding, unspecified Code(s): N93.9 - ABNORMAL UTERINE AND VAGINAL BLEEDING, UNSPECIFIED (2) History of osteosarcoma Code(s): Z85.830 - PERSONAL HISTORY OF MALIGNANT NEOPLASM OF BONE (3) Leiomyoma Code(s): D21.9 - BENIGN NEOPLASM OF CONNECTIVE AND OTHER SOFT TISSUE, UNSP (4) Nausea Code(s): R11.0 - NAUSEA (5) Constipation Code(s): K59.00 - CONSTIPATION, UNSPECIFIED Assessment/Plan encourage ambulation regular diet as tolerated s/p enema and suppository will do dose of reglan to stimulate gastric emptying abdominal exam benign,, soft if passes flatus/BM can go home
[2018-07-22] MEDS ORDERED: METOCLOPRAMIDE HCL INJECTION 10 MG/2 ML VIAL IVPUSH ONE (09:15)
[2018-07-22] MEDS: ENOXAPARIN NA (PORCINE) 40 MG/0.4 ML DISP.SYRIN SQ SCH (10:23)
[2018-07-22 11:37] VITALS: BP 112/64; PULSE 82; TEMP 98.2
--- NOTE | 2018-07-25 14:14 | PATH ---
Surgical Pathology Report Patient Name: DOUGIE BETHEA [facility]. Rec. #: [id number] /Age/Gender: 1990 (Age: 28) / F Account: [id number] Location: [facility] OBS/[employer] Taken: 07/20/2018 Received: 07/21/2018 Reported: 07/25/2018 Physicians: Yumiko Morgan M.D. Specimen(s) Received FIBROIDS Clinical History Leiomyoma of uterus Final Diagnosis FIBROIDS, ABDOMINAL MYOMECTOMY: LEIOMYOMAS, WITH DEGENERATIVE CHANGES (WEIGHT: 160 G). Electronically Signed Tawny Chao M.D. Gross Description Received in formalin labeled "fibroids," is a 160 g aggregate of 3 burleson, rubbery nodules, consistent with fibroids. The fibroids range from 2.5-7.5 cm in greatest dimension. The cut surface of the 2 smaller nodules is burleson and rubbery with whorled architecture. No areas of hemorrhage or necrosis are identified. Sectioning of the largest fibroid displays foci of softening and degeneration. Boat [employer] sections are submitted in 7 cassettes as follows: 1-2-two smaller fibroids; 3-7-largest fibroid. /07/21/201807/21/2018
--- NOTE | 2018-07-26 08:29 | DS ---
"Physical Exam: SUBJECTIVE: POD 2, S/p open abdominal myomectomy Pt seen and examined on AM rounds. Endorses abdominal pain from surgical site as well as discomfort from constipation. Patient had a normal BM after receiving a fleet enema an dis feeling better . Denies cp/sob, n/v/d, calf pain. Vital Signs Temp 98.2 F 07/22/18 10:00 Pulse 82 07/22/18 10:00 Resp 20 07/22/18 10:00 BP 112/64 07/22/18 10:00 Pulse Ox 98 07/20/18 21:00 A/P: 28 y/o F w/ PMHx Osteocarcoma s/p chemo/sx (hip replacement), uterine fibroids, now POD 2, s/p open abdominal myomectomy. Afebrile, vss. Labs stable Constipation, no BM x 5 days. S/P suppository last night. -Fleet enema ordered -OOB ambulating -Pain regimen as ordered -D/c plan per attending d/w attending Dr Morgan OBJECTIVE: PHYSICAL EXAM GENERAL: The patient is awake, alert, and fully oriented, in no acute distress. HEAD: Normal with no signs of trauma. EYES: extraocular movements intact, sclera anicteric, conjunctiva clear. LUNGS: no auditory wheezes, no accessory muscle use. ABDOMEN: soft, slightly distended, + ttp around incision site (appropriate to status), dressing c/d/i, incision c/d/i with no erythema or drainage. EXTREMITIES: 2+ pulses, warm, well-perfused, no edema. NEUROLOGICAL: Cranial nerves II through XII grossly intact. Normal speech, gait not observed. PSYCH: Normal mood, normal affect. SKIN: Warm, dry, normal turgor, no rashes or lesions noted. LABS CBC, BMP 07/21/18 06:07 07/21/18 06:07 HOSPITAL COURSE: Date of Admission:07/20/18 The patient was admitted to the maternity Unit after an elective abdominal myomectomy. Now, s/p myomectomy. The day of surgery, the patient ambulated the hallways with assistance. Narcotic and non-narcotic pain management control was achieved with an oral and IV approach. POD #1, The patient's diet was advanced to regular and she tolerated. POD #2 the patient was given a fleet enema and had a normal BM. Claire-operative IV ABX were administered. DVT prophylaxis was achieved with SCDs , early ambulation, and SQ heparin. The patient ambulated with Physical Therapy and no services were recommended upon discharge. Narcotic scripts were checked on [facility] [employer] prior to escibe. The discharge instructions and an oral pain management plan were reviewed with the patient. All questions answered. Above plan discussed with Dr. Morgan Date of Discharge: 07/22/18 Minutes to complete discharge: 25 Discharge Summary Reason For Visit: LEIOMYOMA OF UTERUS Condition: Good - Instructions Diet, Activity, Other Instructions: Dr. Morgan Digital Account Coordinator discharge instructions Physical activity Resume your normal everyday activity as tolerated no heavy lifting or exercise until seen by your surgeon. You may walk unlimited uriel of and climb stairs. You may resume driving the car when you feel safe and comfortable behind the wheel. No sexual activity as instructed by Dr. Morgan. Wound care If you have a bandage, leave it on, and keep dry for 72 hours. After that time discard the outer bandage. If they are tapes on the skin under the out of bandage leave them in place. They will peel off in the next 7 to 10 days. Do Not Peel them off. You may shower 3 day after surgery. If there are tapes present on the skin, you may shower over them. Do not apply lotions or ointments to incision. Diet There are no dietary restrictions. Eat healthy, high-fiber foods. Drink 6 to 8 glasses of liquid each day. This will assist in keeping your bowels are regular. Pain management You may take Tylenol or acetaminophen or Ibuprofen (for example, Motrin, Advil etc.) from my pain prescription medication is ordered should be taken as prescribed for moderate to severe pain. Call Dr. Morgan for any of the following: Severe pain not relieved by medication Fever of 101 or higher Excessive bleeding or drainage on dressing Inability to urinate If you experience any chest pain or shortness of breath Call the office to confirm your appointment at [phone] [place] Prescription Monitoring Program report was requested by: Tawny Conway | Reference #: [id number] Disposition: HOME - Home Medications Comprehensive Discharge Medication List: Ambulatory Orders Oxycodone HCl/Acetaminophen [Percocet 5-325 mg Tablet] 1 - 2 tab PO Q4H PRN #20 tablet MDD 6 07/21/18 Docusate Sodium [Dulcolax Stool Softener] 100 mg PO BID #20 capsule 07/22/18 Metoclopramide HCl [Reglan] 10 mg PO Q8H #6 tablet MDD 3 07/22/18 Problem List - Problems (1) Leiomyoma Assessment/Plan: POD #2 abdominal myomectomy doing well and feeling better after BM 1) Continue regular diet 2) OOB as tolerated 3) Encourage IS 4) D/c planning for home today and follow up with Dr Moragn as scheduled. Evaluation and plan discussed with Dr Morgan. Code(s): D21.9 - BENIGN NEOPLASM OF CONNECTIVE AND OTHER SOFT TISSUE, UNSP This patient is new to me today: Yes Date on this admission: 07/26/18 Emergency Visit: No Critical Care patient: No - Discharge Referral Referred to [facility] No"
--- NOTE | 2018-07-28 07:42 | OP ---
DATE OF OPERATION: 07/20/2018 PREOPERATIVE DIAGNOSIS: Abdominal and pelvic pain, uterine leiomyoma. POSTOPERATIVE DIAGNOSIS: Abdominal and pelvic pain, uterine leiomyoma. PROCEDURE: Abdominal myomectomy. SURGEON: Yumiko Morgan DO STEWARD/STEWARDESS LOUNGE: MADELYN Nguyen ESTIMATED BLOOD LOSS: 300 mL SPECIMENS REMOVED: Uterine fibroid x3. ANESTHESIOLOGIST: Chela Perkins MD COMPLICATIONS: None. DISPOSITION: Stable to PACU. Sponge, needle and instrument correct. BRIEF HISTORY AND PROCEDURE: The patient is a 28-year-old female who was seen in the office with complaints of severe pelvic pain. Upon ultrasound examination in the emergency room she was found to have a large fundal fibroid. At this point the patient was counseled on her options and she elected to undergo an abdominal myomectomy. This procedure was explained in the office and consents were signed in the office. The patient was admitted to [facility] on July 20, 2018. Consents were reconfirmed. The patient was back to the operating room, given general anesthesia, placed in the dorsal supine position and Quintero catheter was placed under sterile condition. She was prepped and draped in the usual sterile fashion and a hard timeout was performed. A Pfannenstiel skin incision was created in the skin with a scalpel and carried to the underlying layer of rectus fascia sharply. The fascia was incised in the midline sharply and the fascial incision was carried in superolateral direction sharply. The fascia was tented upward and dissected off the underlying layer of rectus muscle sharply and musculature was divided in the midline and laterally. The peritoneum was entered bluntly to allow for adequate room for the procedure. The uterus was identified and elevated out of the abdomen. One large fundal fibroid was noted and 2 smaller subserosal fibroids were appreciated on the left and right sides. Approximately 10 mL of dilute vasopressin was injected into the fundus of the uterus and a transverse incision was created over the top of the fundal fibroid down to the level of the capsule. The fibroid was then decapsulated and removed at this time. The defect was reapproximated in several-layered closure using 0 Vicryl suture and 2-0 V-Loc as the final layer. Excellent hemostasis was achieved. The right-sided subserosal fibroid was identified. An incision was created over the serosa and it was removed without difficulty. The defect was approximated using 3-0 Vicryl in a single [id number] suture. Hemostasis was achieved. The same was repeated with the left subserosal fibroid. All specimens were sent to Pathology for permanent evaluation. Interceed was placed over the incisions and sutured in place. The uterus was placed back into the abdomen and hemostasis was noted. The peritoneum was approximated in a running layer using 2-0 Vicryl. The musculature was reapproximated in interrupted sutures. The fascia was reapproximated using 1 Vicryl in a running fashion. Subcutaneous tissue was irrigated and reapproximated in running layer and the skin was reapproximated subcuticular layer and Steri-Strips were applied. The patient tolerated the procedure well with recovery in stable condition in the PACU after the procedure. YUMIKO MORGAN DO /[id number]
== END 2018-07-22 13:00 | disposition home or self-care (01) | DRG 743 ==
LOC: JSAMEDAYSX 05:03 → J3W 15:39
PROVIDERS: ADMIT Obstetrics & Gynecology; ATTEND Obstetrics & Gynecology
PROC: 0UB90ZZ Excision of Uterus, Open Approach (ICD-10-PCS; principal; 2018-07-20 11:00)
DX: D25.9 Leiomyoma of uterus, unspecified (principal); N93.9 Abnormal uterine and vaginal bleeding, unspecified; M54.5 Low back pain; K59.00 Constipation, unspecified; R11.0 Nausea; Z85.830 Personal history of malignant neoplasm of bone
CPT/HCPCS: 36415; 80053; 81003; 84702; 85025; 86850; 86900; 86901; 88305-TC; 94760

== ENCOUNTER 2018-12-13 21:48 | Emergency (ER) | payer OTHER ==
[2018-12-13 22:10] VITALS: BP 109/76; PULSE 77; TEMP 98.4; BMI 33.4
--- NOTE | 2018-12-13 22:54 | PDOC ---
History of Present Illness - General Chief Complaint: Pain Stated Complaint: ABD PAIN Time Seen by Provider: 12/13/18 22:47 Past History - Past Medical History Allergies/Adverse Reactions: Allergies Allergy/AdvReac Type Severity Reaction Status Date / Time iodine Allergy "can't Verified 12/13/18 22:06 breath" Penicillins Allergy "rash" Verified 12/13/18 22:06 sulfamethoxazole Allergy "rash" Verified 12/13/18 22:06 [From Bactrim] trimethoprim [From Bactrim] Allergy Verified 12/13/18 22:06 Home Medications: Ambulatory Orders Oxycodone HCl/Acetaminophen [Percocet 5-325 mg Tablet] 1 - 2 tab PO Q4H PRN #20 tablet MDD 6 07/21/18 Docusate Sodium [Dulcolax Stool Softener] 100 mg PO BID #20 capsule 07/22/18 Metoclopramide HCl [Reglan] 10 mg PO Q8H #6 tablet MDD 3 07/22/18 Anemia: Yes Asthma: Yes (inhaler in winter/colds-no recent attack) Cancer: Yes (Osteosarcoma) Cardiac Disorders: No CVA: No COPD: No CHF: No Dementia: No Diabetes: No GI Disorders: No Disorders: No HTN: No Hypercholesterolemia: No Liver Disease: No Seizures: No Thyroid Disease: No - Surgical History Lung Surgery: Yes (tumor removed-right) Orthopedic Surgery: Yes (right knee surgery) - Immunization History Immunization Up to Date: Yes - Suicide/Smoking/Psychosocial Hx Smoking History: Never smoked Have you smoked in the past 12 months: No Hx Alcohol Use: No Drug/Substance Use Hx: No Substance Use Type: Alcohol Hx Substance Use Treatment: No *Physical Exam - Vital Signs Last Vital Signs Temp Pulse Resp BP Pulse Ox 98.4 F 77 20 109/76 100 12/13/18 22:07 12/13/18 22:07 12/13/18 22:07 12/13/18 22:07 12/13/18 22:07 *DC/Admit/Observation/Transfer - Referrals Referrals: Michael Jamil MD [Primary Care Provider] - - Patient Instructions - Post Discharge Activity
[2018-12-14 00:30] LABS: BASO % 0.9 % (0-2.0); EOS % 3.5 % (0-4.5); HEMATOCRIT 34.4 % (32.4-45.2); HEMOGLOBIN 10.8 GM/dL (10.7-15.3); LYMPH % 27.9 % (8-40); MCH 23.5 pg (25.7-33.7); MCHC 31.6 g/dl (32.0-36.0); MEAN CELL VOLUME 74.5 fl (80-96); MEAN PLT VOLUME 8.1 fl (7.5-11.1); MONO % 9.4 % (3.8-10.2); NEUT % 58.3 % (42.8-82.8); PLATELET COUNT 198 K/MM3 (134-434); RBC 4.61 M/mm3 (3.60-5.2); RDW 15.8 % (11.6-15.6); WHITE BLOOD COUNT 6.1 K/mm3 (4.0-10.0)
[2018-12-14 00:35] LABS: PH,URINE 5.5 (5.0-8.0); URINE APPEARANCE CLEAR; URINE BILIRUBIN NEGATIVE (NEGATIVE); URINE COLOR YELLOW; URINE GLUCOSE (UA) NEGATIVE (NEGATIVE); URINE KETONE NEGATIVE (NEGATIVE); URINE LEUK ESTERASE NEGATIVE (NEGATIVE); URINE NITRITE NEGATIVE (NEGATIVE); URINE PROTEIN NEGATIVE (NEGATIVE)
[2018-12-14 00:59] LABS: ALBUMIN 3.6 g/dl (3.4-5.0); BILIRUBIN,TOTAL 0.2 mg/dL (0.2-1); BLOOD UREA NITROGEN 20.4 mg/dL (7-18); CALCIUM 8.9 mg/dL (8.5-10.1); CREATININE 0.8 mg/dL (0.55-1.3); POTASSIUM 3.6 mmol/L (3.5-5.1); TOT PROT 7.1 g/dl (6.4-8.2)
--- NOTE | 2018-12-14 02:18 | PDOC ---
Documentation entered by Marni Damon SCRIBE, acting as scribe for Jacqueline Andre MD. Jacqueline Andre MD: This documentation has been prepared by the carlosibe, Marni Damon SCRIBE, under my direction and personally reviewed by me in its entirety. I confirm that the documentation accurately reflects all work, treatment, procedures, and medical decision making performed by me. 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 The patient states that her right lower quadrant pain is worsened with movement and radiates to her right lower back. She endorses taking gas-x and laxative to relieve her pain with no apparent relief. The patient states that her lmp was 11/21/18. She denies any fever, chills, nausea, vomiting, diarrhea, constipation or urinary symptoms she denies any chest pain, shortness of breath. Headache or dizziness. The patient denies any other symptoms or complaints. Past History - Past Medical History Allergies/Adverse Reactions: Allergies Allergy/AdvReac Type Severity Reaction Status Date / Time iodine Allergy "can't Verified 12/13/18 22:06 breath" Penicillins Allergy "rash" Verified 12/13/18 22:06 sulfamethoxazole Allergy "rash" Verified 12/13/18 22:06 [From Bactrim] trimethoprim [From Bactrim] Allergy Verified 12/13/18 22:06 Home Medications: Ambulatory Orders Oxycodone HCl/Acetaminophen [Percocet 5-325 mg Tablet] 1 - 2 tab PO Q4H PRN #20 tablet MDD 6 07/21/18 Docusate Sodium [Dulcolax Stool Softener] 100 mg PO BID #20 capsule 07/22/18 Metoclopramide HCl [Reglan] 10 mg PO Q8H #6 tablet MDD 3 07/22/18 Anemia: Yes Asthma: Yes (inhaler in winter/colds-no recent attack) Cancer: Yes (Osteosarcoma) Cardiac Disorders: No CVA: No COPD: No CHF: No Dementia: No Diabetes: No GI Disorders: No Disorders: No HTN: No Hypercholesterolemia: No Liver Disease: No Seizures: No Thyroid Disease: No - Surgical History Lung Surgery: Yes (tumor removed-right) Orthopedic Surgery: Yes (right knee surgery) - Immunization History Immunization Up to Date: Yes - Suicide/Smoking/Psychosocial Hx Smoking History: Never smoked Have you smoked in the past 12 months: No Hx Alcohol Use: No Drug/Substance Use Hx: No Substance Use Type: Alcohol Hx Substance Use Treatment: No Review of Systems - Review of Systems Comments:: 12/13/18 23:10 CONSTITUTIONAL: Absent: fever, no chills, no fatigue EYES: Absent: visual changes ENT: Absent: ear pain, no sore throat CARDIOVASCULAR: Absent: chest pain, no palpitations RESPIRATORY: Absent: cough, no SOB GI:(+)abdominal pain. Absent: no nausea, no vomiting, no constipation, no diarrhea GENITOURINARY: Absent: dysuria, no frequency, no hematuria MUSKULOSKELETAL: Absent: back pain, no arthralgia, no myalgia SKIN: Absent: rash NEURO: Absent: headache *Physical Exam - Vital Signs Last Vital Signs Temp Pulse Resp BP Pulse Ox 98.4 F 77 20 109/76 100 12/13/18 22:07 12/13/18 22:07 12/13/18 22:07 12/13/18 22:07 12/13/18 22:07 - Physical Exam Comments: 12/13/18 23:09 GENERAL: Well-appearing, well-nourished. No apparent distress. HEENT: Normocephalic, atraumatic. PERRL, EOM intact. CARDIOVASCULAR: Normal S1, S2. Regular rate and rhythm. PULMONARY: Clear to auscultation bilaterally. ABDOMEN: (+)RLQ tenderness. Soft, non-distended, non-tender. EXTREMITIES: Normal ROM in all four extremities. No gross deformities. SKIN: Warm, dry. No rash NEUROLOGICAL: No focal neurological deficits. ED Treatment Course - LABORATORY CBC & Chemistry Diagram: 12/14/18 00:20 12/14/18 00:20 - ADDITIONAL ORDERS Additional order review: Laboratory Results 07/10/19 07/10/19 07/10/19 00:20 00:20 00:20 Sodium 140 Potassium 3.6 Chloride 107 Carbon Dioxide 28 Anion Gap 5 L BUN 20.4 H Creatinine 0.8 Est GFR (CKD-EPI)AfAm 117.10 Est GFR (CKD-EPI)NonAf 101.04 Random Glucose 90 Calcium 8.9 Total Bilirubin 0.2 AST 16 ALT 20 Alkaline Phosphatase 75 Total Protein 7.1 Albumin 3.6 Serum , Qual Negative Urine Color Yellow Urine Appearance Clear Urine pH 5.5 Ur Specific Meredith 1.031 Urine Protein Negative Urine Glucose (UA) Negative Urine Ketones Negative Urine Blood Negative Urine Nitrite Negative Urine Bilirubin Negative Urine Urobilinogen 1.0 Ur Leukocyte Esterase Negative 12/14/18 00:20 RBC 4.61 MCV 74.5 L MCHC 31.6 L RDW 15.8 H D MPV 8.1 Neutrophils % 58.3 Lymphocytes % 27.9 D Monocytes % 9.4 Eosinophils % 3.5 D Basophils % 0.9 D - RADIOLOGY Radiology Studies Ordered: Category Date Time Status ABDOMEN & PELVIS CT W/O CONTR [CT] Stat CT Scan 12/14/18 01:09 Taken TRANSVAGINAL ULTRASOUND US [US] Stat Ultrasound 12/14/18 23:11 Taken Medical Decision Making - Medical Decision Making 12/14/18 02:12 28-year-old female with 3-4 days of right lower quadrant pain, was seen at urgent care center who sent her to the emergency department for imaging studies negative test UA is negative for any infection. CBC is unremarkable Chemistry is essentially unremarkable Negative test Transvaginal ultrasound and duplex scan of the pelvis shows that there is no ovarian torsion, color flow bilaterally with appropriate arterial and venous waveforms. Enlarged right ovary, 6.2 x 4 x 5.5 cm containing a 4 cm x 3.8 cm x 3.4 cm possible hemorrhagic cyst no free fluid, Advised follow-up ultrasound in 10 weeks to reassess for resolution 9mm fibroid in uterus endometrial stripe complex 7 mm thick 12/14/18 03:07 skin abdomen and pelvis without contrast shows there is a normal appendix, no bowel obstruction, no colitis. No free air. She has an unremarkable pancreas and gallbladder. There is small stones in the right kidney. No obstructive uropathy. There is a right ovarian cyst This corresponds to a hemorrhagic cyst. There is some trace physiologic free fluid in the cul-de-sac. impression right ovarian hemorrhagic cyst. 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 have a repeat ultrasound in 8-10 weeks *DC/Admit/Observation/Transfer Diagnosis at time of Disposition: Hemorrhagic cyst, Pelvic pain - Discharge Dispostion Disposition: HOME Condition at time of disposition: Stable - Referrals Referrals: Michael Jamil MD [Primary Care Provider] - Yumiko Morgan DO [Staff Physician] - - Patient Instructions Printed Discharge Instructions: DI for Ovarian Cyst Additional Instructions: please take advil or aleve for your pain Follow up with [facility] You have a right ovarian cyst and should have a repeat pelvis ultrasound in 8 to 10 weeks - Post Discharge Activity
== END 2018-12-14 03:43 | disposition home or self-care (01) ==
LOC: JER 21:48
DX: R10.9 Unspecified abdominal pain (principal)
CPT/HCPCS: 36415; 74176-TC; 76830-TC; 80053; 81003; 84703; 85025; 99282-25

== ENCOUNTER 2019-01-22 11:38 | Emergency (ER) | payer OTHER ==
[2019-01-22 11:48] VITALS: BP 134/71; PULSE 75; TEMP 98.5; BMI 34.2
[2019-01-22] MEDS ORDERED: KETOROLAC TROMETHAMINE 60 MG/2 ML VIAL IM ONE (12:23)
--- NOTE | 2019-01-22 12:23 | PDOC ---
History of Present Illness - General Chief Complaint: Head/Neck problem Stated Complaint: NECK/ HEAD PAIN Time Seen by Provider: 01/22/19 11:52 - History of Present Illness Initial Comments: 01/22/19 12:20 CHIEF COMPLAINT: head/neck injury HISTORY OF PRESENT ILLNESS: 28 yo F with hx of osteosarcoma, left hip/femur replacement, and recent myomectomy presents to fast track with head/neck pain s/ p injury 3 days ago. Patient reports that she was in [facility] and came down a water slide and hit the back of her head on the bottom of the slide. She states that she was vomiting after the accident and "couldn't stay awake" and fell asleep afterwards. She was not seen in [facility] for her injury " because I didn't want to go to the hospital there." She c/o of current headache and neck pain. No recent travel or sick contacts. PAST MEDICAL HISTORY: Denies past medical history FAMILY HISTORY: Denies SOCIAL HISTORY: Denies tobacco, alcohol, illicit drug use. SURGICAL HISTORY: Denies ALLERGIES: iodine, pencillin, bactrim REVIEW OF SYSTEMS General/Constitutional: Denies fever or chills. Denies weakness, weight change. HEENT: Denies change in vision. Denies ear pain or discharge. Denies sore throat. Cardiovascular: Denies chest pain or shortness of breath. Respiratory: Denies cough, wheezing, or hemoptysis. Gastrointestinal: Vomiting two days ago, none now. Diarrhea or constipation. Denies rectal bleeding. Genitourinary: Denies dysuria, frequency, or change in urination. Musculoskeletal: Denies joint or muscle swelling or pain. Denies neck or back pain. Skin and breasts: Denies rash or easy bruising. Neurologic: Headache. Denies vertigo, loss of consciousness, or loss of sensation. PHYSICAL EXAM General Appearance: Well-appearing, appropriately dressed. No apparent distress. HEENT: EOMI, PERRLA, normal ENT inspection, normal voice, TMs normal, pharynx normal. No conjunctival pallor. No photophobia, scleral icterus. Neck: Supple. Trachea midline. No tenderness, rigidity, carotid bruit, stridor , lymphadenopathy, or thyromegaly. Respiratory/Chest: Lungs CTAB. No shortness of breath, chest tenderness, respiratory distress, accessory muscle use. No crackles, rales, rhonchi, stridor , wheezing, dullness Cardiovascular: RRR. S1, S2. No JVD, murmur, bradycardia, tachycardia. Vascular Pulses: Dorsalis-Pedis (R): 2+, Dorsalis-Pedis (L): 2+ Gastrointestinal/Abdominal: Normal bowel sounds. Abdomen soft, non-distended. No tenderness or rebound tenderness. No organomegaly, pulsatile mass, guarding , hernia, hepatomegaly, splenomegaly. Lymphatic: No adenopathy, tenderness. Musculoskeletal/Extremities: Tenderness to b/l sternocleidomastoid and b/l trapezius muscles. Normal inspection. FROM of all extremities, normal capillary refill. Pelvis Stable. No CVA tenderness. No tenderness to extremities, pedal edema, swelling, erythema or deformity. Integumentary: Appropriate color, dry, warm. 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 Fully oriented, alert. Appropriate mood/affect. Motor strength 5/5. No appreciable EOM palsy, facial droop or sensory deficit. Past History - Past Medical History Allergies/Adverse Reactions: Allergies Allergy/AdvReac Type Severity Reaction Status Date / Time iodine Allergy "can't Verified 01/22/19 11:44 breath" Penicillins Allergy "rash" Verified 01/22/19 11:44 sulfamethoxazole Allergy "rash" Verified 01/22/19 11:44 [From Bactrim] trimethoprim [From Bactrim] Allergy Verified 01/22/19 11:44 Home Medications: Ambulatory Orders Oxycodone HCl/Acetaminophen [Percocet 5-325 mg Tablet] 1 - 2 tab PO Q4H PRN #20 tablet MDD 6 07/21/18 Docusate Sodium [Dulcolax Stool Softener] 100 mg PO BID #20 capsule 07/22/18 Metoclopramide HCl [Reglan] 10 mg PO Q8H #6 tablet MDD 3 07/22/18 Cyclobenzaprine HCl 10 mg PO HS #10 tablet 01/22/19 Diclofenac Sodium 75 mg PO BID #20 tablet. 01/22/19 Anemia: Yes Asthma: Yes (inhaler in winter/colds-no recent attack) Cancer: Yes (Osteosarcoma) Cardiac Disorders: No CVA: No COPD: No CHF: No Dementia: No Diabetes: No GI Disorders: No Disorders: No HTN: No Hypercholesterolemia: No Liver Disease: No Seizures: No Thyroid Disease: No - Surgical History Lung Surgery: Yes (tumor removed-right) Orthopedic Surgery: Yes (right knee surgery) - Immunization History Immunization Up to Date: Yes - Suicide/Smoking/Psychosocial Hx Smoking History: Never smoked Have you smoked in the past 12 months: No Information on smoking cessation initiated: No Hx Alcohol Use: No Drug/Substance Use Hx: No Substance Use Type: Alcohol Hx Substance Use Treatment: No *Physical Exam - Vital Signs Last Vital Signs Temp Pulse Resp BP Pulse Ox 98.5 F 75 18 134/71 98 01/22/19 11:45 01/22/19 11:45 01/22/19 11:45 01/22/19 11:45 01/22/19 11:45 ED Treatment Course - RADIOLOGY Radiology Studies Ordered: Category Date Time Status CERVICAL SPINE CT W/O CONTR [CT] Stat CT Scan 01/22/19 12:[address] WITHOUT CONTRAST [CT] Stat CT Scan 01/22/19 12:06 Ordered Medical Decision Making - Medical Decision Making 01/22/19 12:23 28 yo F with hx of osteosarcoma, left hip/femur replacement, and recent myomectomy presents to fast track with head/neck pain s/p injury 3 days ago. -UA, upreg -head/c-spine CT 01/22/19 15:31 CTs negative. Toradol, flexeril. Advised patient to take medication as prescribed and follow up with ortho/ neurology if symptoms persist. Advised patient of signs and symptoms for return to ED. Patient verbalized understanding and agrees to plan. *DC/Admit/Observation/Transfer Diagnosis at time of Disposition: Post concussion syndrome, Cervical paraspinal muscle spasm - Discharge Dispostion Disposition: HOME Condition at time of disposition: Stable Decision to Admit order: No - Prescriptions Prescriptions: Cyclobenzaprine HCl 10 mg PO HS #10 tablet Diclofenac Sodium 75 mg PO BID #20 tablet.dr - Referrals Referrals: Cecy Cervantes MD [Primary Care Provider] - Mariusz Millan MD [Staff Physician] - - Patient Instructions Printed Discharge Instructions: DI for Cervical Muscle Strain, DI for Postconcussion Syndrome Additional Instructions: Please take medications as prescribed. Follow up with orthopedics if symptoms persist. If you develop any loss of consciousness, loss of memory, change in vision, persistent vomiting, or any new or worsening symptoms, please return to the ER. - Post Discharge Activity Forms/Work/School Notes: Back to Work
[2019-01-22] MEDS ORDERED: KETOROLAC TROMETHAMINE 60 MG/2 ML VIAL ONE (12:27)
[2019-01-22 13:04] LABS: URINE APPEARANCE CLEAR; URINE BILIRUBIN NEGATIVE (NEGATIVE); URINE COLOR YELLOW; URINE GLUCOSE (UA) NEGATIVE (NEGATIVE); URINE KETONE NEGATIVE (NEGATIVE)
[2019-01-22 13:05] LABS: URINE LEUK ESTERASE NEGATIVE (NEGATIVE); URINE NITRITE NEGATIVE (NEGATIVE); URINE PROTEIN NEGATIVE (NEGATIVE); URINE UROBILINOGEN 0.2 mg/dL (0.2-1.0)
[2019-01-22] MEDS ORDERED: ACETAMINOPHEN 325 MG TABLET (FP) ONE (14:51)
[2019-01-22] MEDS ORDERED: ACETAMINOPHEN 325 MG TABLET (FP) PO ONE (14:52)
== END 2019-01-22 14:52 | disposition home or self-care (01) ==
LOC: JER 11:38
PROC: 3E0233Z Introduction of Anti-inflammatory into Muscle, Percutaneous Approach (ICD-10-PCS; principal; 2019-01-22)
DX: F07.81 Postconcussional syndrome (principal); M62.838 Other muscle spasm
CPT/HCPCS: 70450-TC; 72125-TC; 81003; 84703; 96372; 99282-25

== ENCOUNTER 2019-03-14 14:21 | Emergency (ER) | payer OTHER ==
[2019-03-14 14:36] VITALS: BP 107/55; PULSE 85; TEMP 98.8; BMI 34.2
--- NOTE | 2019-03-14 14:36 | PDOC ---
Rapid Medical Evaluation Chief Complaint: Pain, Acute Time Seen by Provider: 03/14/19 14:32 Medical Evaluation: Allergies Allergy/AdvReac Type Severity Reaction Status Date / Time iodine Allergy "can't Verified 01/22/19 11:44 breath" Penicillins Allergy "rash" Verified 01/22/19 11:44 sulfamethoxazole Allergy "rash" Verified 01/22/19 11:44 [From Bactrim] trimethoprim [From Bactrim] Allergy Verified 01/22/19 11:44 03/14/19 14:34 29-year-old female hx osteosarcoma s/p hip and femur replacement age 15 and chemotherapy at [facility] presenting with left hip and leg pain, unable to bear full weight after jumping up and down Wednesday night. Alert, oriented, no distress. Tender left hip, femur, knee with limited ROM. Bearing partial weight with cane. I have ordered the following: Pgu. Xrays left hip, femur, knee. Patient to proceed to ED for further evaluation. Discharge Disposition - Diagnosis Hip pain - Discharge Dispostion Condition at time of disposition: Stable - Referrals - Patient Instructions - Post Discharge Activity
--- NOTE | 2019-03-14 15:27 | PDOC ---
History of Present Illness - General Chief Complaint: Pain, Acute Stated Complaint: LT HIP/KNEE PAIN Time Seen by Provider: 03/14/19 14:32 - History of Present Illness Initial Comments: 03/14/19 15:27 CHIEF COMPLAINT: left hip/knee pain HISTORY OF PRESENT ILLNESS: 29 yo F with hx of osteosarcoma s/p L hip replacement presents to fast track with pain to L hip and knee x 3 days. Patient reports that she was jumping up and down at her sister's gender reveal alliance party 3 days ago "and was fine then" but then the next day started feeling pain to her left hip, which has continued through to today. No recent travel or sick contacts. PAST MEDICAL HISTORY: osteosarcoma, PCOS FAMILY HISTORY: Denies SOCIAL HISTORY: Denies tobacco, alcohol, illicit drug use. SURGICAL HISTORY: Denies ALLERGIES: iodine, PCN, sulfa, trimethoprim REVIEW OF SYSTEMS General/Constitutional: Denies fever or chills. Denies weakness, weight change. HEENT: Denies change in vision. Denies ear pain or discharge. Denies sore throat. Cardiovascular: Denies chest pain or shortness of breath. Respiratory: Denies cough, wheezing, or hemoptysis. Gastrointestinal: Denies nausea, vomiting, diarrhea or constipation. Denies rectal bleeding. Genitourinary: Denies dysuria, frequency, or change in urination. Musculoskeletal: Pain to left hip and knee. Skin and breasts: Denies rash or easy bruising. Neurologic: Denies headache, vertigo, loss of consciousness, or loss of sensation. Psychiatric: Denies depression or anxiety. PHYSICAL EXAM General Appearance: Well-appearing, appropriately dressed. No apparent distress , no intoxication. HEENT: EOMI, PERRLA, normal ENT inspection, normal voice, TMs normal, pharynx normal. No conjunctival pallor. No photophobia, scleral icterus. Neck: Supple. Trachea midline. No tenderness, rigidity, carotid bruit, stridor , lymphadenopathy, or thyromegaly. Respiratory/Chest: Lungs CTAB. No shortness of breath, chest tenderness, respiratory distress, accessory muscle use. No crackles, rales, rhonchi, stridor , wheezing, dullness Cardiovascular: RRR. S1, S2. No JVD, murmur, bradycardia, tachycardia. Vascular Pulses: Dorsalis-Pedis (R): 2+, Dorsalis-Pedis (L): 2+ Gastrointestinal/Abdominal: Normal bowel sounds. Abdomen soft, non-distended. No tenderness or rebound tenderness. No organomegaly, pulsatile mass, guarding , hernia, hepatomegaly, splenomegaly. Lymphatic: No adenopathy, tenderness. Musculoskeletal/Extremities: Patient ambulating with limp to L leg. FROM of all other extremities, normal capillary refill. Pelvis Stable. No CVA tenderness. No tenderness to extremities, pedal edema, swelling, erythema or deformity. Integumentary: Appropriate color, dry, warm. No cyanosis, erythema, jaundice or rash Neurologic: real estate agent/broker II-XII intact. Fully oriented, alert. Appropriate mood/affect. Motor strength 5/5. No appreciable EOM palsy, facial droop or sensory deficit. 03/14/19 18:09 Past History - Past Medical History Allergies/Adverse Reactions: Allergies Allergy/AdvReac Type Severity Reaction Status Date / Time iodine Allergy "can't Verified 01/22/19 11:44 breath" Penicillins Allergy "rash" Verified 01/22/19 11:44 sulfamethoxazole Allergy "rash" Verified 01/22/19 11:44 [From Bactrim] trimethoprim [From Bactrim] Allergy Verified 01/22/19 11:44 Home Medications: Ambulatory Orders Oxycodone HCl/Acetaminophen [Percocet 5-325 mg Tablet] 1 - 2 tab PO Q4H PRN #20 tablet MDD 6 07/21/18 Docusate Sodium [Dulcolax Stool Softener] 100 mg PO BID #20 capsule 07/22/18 Metoclopramide HCl [Reglan] 10 mg PO Q8H #6 tablet MDD 3 07/22/18 Cyclobenzaprine HCl 10 mg PO HS #10 tablet 01/22/19 Diclofenac Sodium 75 mg PO BID #20 tablet. 01/22/19 Lidocaine 5% Patch [Lidoderm -] 1 patch TP DAILY #3 patch 03/14/19 Potassium Chloride [K-Dur -] 20 meq PO BID #14 tablet.er 03/14/19 Anemia: Yes Asthma: Yes (inhaler in winter/colds-no recent attack) Cancer: Yes (Osteosarcoma) Cardiac Disorders: No CVA: No COPD: No CHF: No Dementia: No Diabetes: No GI Disorders: No Disorders: No HTN: No Hypercholesterolemia: No Liver Disease: No Seizures: No Thyroid Disease: No - Surgical History Lung Surgery: Yes (tumor removed-right) Orthopedic Surgery: Yes (right knee surgery) - Immunization History Immunization Up to Date: Yes - Psycho Social/Smoking Cessation Hx Smoking History: Never smoked Have you smoked in the past 12 months: No Information on smoking cessation initiated: No Hx Alcohol Use: No Drug/Substance Use Hx: No Substance Use Type: Alcohol Hx Substance Use Treatment: No *Physical Exam - Vital Signs Last Vital Signs Temp Pulse Resp BP Pulse Ox 98.8 F 85 18 107/55 L 99 03/14/19 14:32 03/14/19 14:32 03/14/19 14:32 03/14/19 14:32 03/14/19 14:32 ED Treatment Course - LABORATORY CBC & Chemistry Diagram: 03/14/19 17:20 03/14/19 17:20 - ADDITIONAL ORDERS Additional order review: Laboratory Results 03/14/19 14:52 Urine HCG, Qual Positive Medical Decision Making - Medical Decision Making 03/14/19 16:48 29 yo F with hx of osteosarcoma s/p L hip replacement presents to fast track with pain to L hip and knee x 3 days. -upreg ordered in RME positive Patient states she was recently diagnosed with PCOS and was told she would have a difficulty time conceiving and does not believe she is , also states that she is spotting today. -beta hcg ordered in RME Discussed with patient risks vs benefits of x-ray evaluation for hip/knee pain, patient agree to x-ray. -beta 36k given that patient states she was spotting today, will order T&S, US to evaluate . Ultrasound results positive for with EGA of 6 weeks and 1 day. Patient potassium 3.2, will rx K-Dur. Lidocaine patch given for pain control of left hip/knee Patient to follow-up with OB and Ortho for continued evaluation and management of left hip pain and . Advised patient to take medication as prescribed and follow up with ortho and OB within the next week. Advised patient of signs and symptoms for return to ED. Patient verbalized understanding and agrees to plan. 03/14/19 20:11 Discharge - Discharge Information Problems reviewed: Yes Clinical Impression/Diagnosis: Vaginal bleeding during , Hypokalemia Hip pain Qualifiers: Laterality: left Qualified Code(s): M25.552 - Pain in left hip Qualifiers: Weeks of gestation: less than 8 weeks Qualified Code(s): Z3A.01 - Less than 8 weeks gestation of Condition: Stable Disposition: HOME - Admission No - Additional Discharge Information Prescriptions: Lidocaine 5% Patch [Lidoderm -] 1 patch TP DAILY #3 patch Potassium Chloride [K-Dur -] 20 meq PO BID #14 tablet.er - Follow up/Referral Referrals: Abram Cervantes MD [Primary Care Provider] - Tk Mcelroy MD [Staff Physician] - Yumiko Morgan DO [Staff Physician] - - Patient Discharge Instructions Patient Printed Discharge Instructions: Common Discomforts and Bodily Changes During , Managing Symptoms of , DI for Leg Pain - Post Discharge Activity
[2019-03-14 18:09] LABS: BASO % 1.5 % (0-2.0); EOS % 3.6 % (0-4.5); HEMATOCRIT 33.5 % (32.4-45.2); HEMOGLOBIN 10.7 GM/dL (10.7-15.3); LYMPH % 29.4 % (8-40); MCH 24.1 pg (25.7-33.7); MCHC 31.8 g/dl (32.0-36.0); MEAN CELL VOLUME 75.7 fl (80-96); MEAN PLT VOLUME 9.2 fl (7.5-11.1); MONO % 10.6 % (3.8-10.2); NEUT % 54.9 % (42.8-82.8); PLATELET COUNT 210 K/MM3 (134-434); RBC 4.43 M/mm3 (3.60-5.2); RDW 14.9 % (11.6-15.6); WHITE BLOOD COUNT 6.1 K/mm3 (4.0-10.0)
[2019-03-14 18:40] LABS: ALBUMIN 2.9 g/dl (3.4-5.0); BILIRUBIN,TOTAL 0.1 mg/dL (0.2-1); BLOOD UREA NITROGEN 16.3 mg/dL (7-18); CALCIUM 7.6 mg/dL (8.5-10.1); CREATININE 0.8 mg/dL (0.55-1.3); POTASSIUM 3.2 mmol/L (3.5-5.1); TOT PROT 6.1 g/dl (6.4-8.2)
== END 2019-03-14 19:42 | disposition home or self-care (01) ==
LOC: JERFT 14:21
DX: O26.891 Other specified pregnancy related conditions, first trimester (principal); O20.8 Other hemorrhage in early pregnancy; Z3A.01 Less than 8 weeks gestation of pregnancy; E87.6 Hypokalemia; M25.552 Pain in left hip; O99.281 Endocrine, nutritional and metabolic diseases complicating pregnancy, first trimester; E28.2 Polycystic ovarian syndrome; Z85.830 Personal history of malignant neoplasm of bone; Z88.0 Allergy status to penicillin; Z88.2 Allergy status to sulfonamides; Z88.8 Allergy status to other drugs, medicaments and biological substances; Z96.642 Presence of left artificial hip joint
CPT/HCPCS: 36415; 73523-TC-FY; 73552-TC-LT-FY; 73562-TC-LT-FY; 76817-TC; 80053; 84702; 84703; 85025; 86850; 86900; 86901; 99281-25

== ENCOUNTER 2019-05-24 20:38 | Emergency (ER) | payer OTHER ==
--- NOTE | 2019-05-24 20:55 | PDOC ---
Rapid Medical Evaluation Time Seen by Provider: 05/24/19 20:48 Medical Evaluation: Allergies Allergy/AdvReac Type Severity Reaction Status Date / Time iodine Allergy "can't Verified 01/22/19 11:44 breath" Penicillins Allergy "rash" Verified 01/22/19 11:44 sulfamethoxazole Allergy "rash" Verified 01/22/19 11:44 [From Bactrim] trimethoprim [From Bactrim] Allergy Verified 01/22/19 11:44 05/24/19 20:51 I have performed a brief in-person evaluation of this patient. The patient presents with a chief complaint of:16 weeks by dates w/ confirmed IUP w/ abd cramps that started shortly after eating steak today. Had 2 e/o n/v earlier today. Also feels dizzy. No diarrhea. No dysuria, f/c. (s/p 2 elective Abs). F/u at [id number] Pertinent physical exam findings:stable I have ordered the following:labs/ua The patient will proceed to the ED for further evaluation. 05/24/19 20:55 Discharge Disposition - Diagnosis Abdominal cramping - Referrals - Patient Instructions - Post Discharge Activity
[2019-05-24 20:56] VITALS: BP 119/51; PULSE 88; TEMP 98.4; BMI 33.4
[2019-05-24 22:04] LABS: BASO % 0.3 % (0-2.0); EOS % 0.2 % (0-4.5); HEMATOCRIT 31.1 % (32.4-45.2); HEMOGLOBIN 10.1 GM/dL (10.7-15.3); LYMPH % 12.7 % (8-40); MCH 24.4 pg (25.7-33.7); MCHC 32.3 g/dl (32.0-36.0); MEAN CELL VOLUME 75.4 fl (80-96); MEAN PLT VOLUME 8.6 fl (7.5-11.1); MONO % 4.9 % (3.8-10.2); NEUT % 81.9 % (42.8-82.8); PLATELET COUNT 279 K/MM3 (134-434); RBC 4.13 M/mm3 (3.60-5.2); RDW 14.2 % (11.6-15.6)
[2019-05-24 22:05] LABS: PH,URINE 7.5 (5.0-8.0); URINE APPEARANCE CLEAR; URINE BILIRUBIN NEGATIVE (NEGATIVE); URINE COLOR YELLOW; URINE GLUCOSE (UA) NEGATIVE (NEGATIVE); URINE KETONE 1+ (NEGATIVE); URINE LEUK ESTERASE NEGATIVE (NEGATIVE); URINE NITRITE NEGATIVE (NEGATIVE); URINE PROTEIN NEGATIVE (NEGATIVE)
[2019-05-24 22:37] LABS: ALBUMIN 3.3 g/dl (3.4-5.0); BILIRUBIN,TOTAL 0.2 mg/dL (0.2-1); BLOOD UREA NITROGEN 10.7 mg/dL (7-18); CALCIUM 9.2 mg/dL (8.5-10.1); CREATININE 0.6 mg/dL (0.55-1.3); POTASSIUM 3.8 mmol/L (3.5-5.1); TOT PROT 6.7 g/dl (6.4-8.2)
[2019-05-24] MEDS ORDERED: ONDANSETRON 4 MG/2 ML VIAL IVPUSH ONE (22:57)
[2019-05-24] MEDS ORDERED: SODIUM CHLORIDE 0.9% 1000 ML INFUS.BAG IV ONE (22:57)
[2019-05-24] MEDS ORDERED: ACETAMINOPHEN 1000 MG/100 ML VIAL (NON FORMULARY) IVPB ONE (22:57)
--- NOTE | 2019-05-24 23:05 | PDOC ---
Documentation entered by Allan Hart SCRIBE, acting as scribe for Lynette Ovalle DO. Lynette Ovalle DO: This documentation has been prepared by the Tanner medina Nirvannie, SCRIBE, under my direction and personally reviewed by me in its entirety. I confirm that the documentation accurately reflects all work, treatment, procedures, and medical decision making performed by me. History of Present Illness - General Chief Complaint: Pain Stated Complaint: 16 WK IN/ABD PAIN Time Seen by Provider: 05/24/19 20:48 History Source: Patient Exam Limitations: No Limitations - History of Present Illness Initial Comments: 05/24/19 23:39 The patient is a 29 year old 16 weeks female A2, with a significant past medical history of osteosarcoma, who presents to the emergency department with abdominal cramping. As per patient, shortly after having a steak dinner at [facility] she began to feel abdominal cramping, nausea, and mild diaphoresis every approximately 30 minutes. While in the ED, patient complains of intermittent lower abdominal cramping and nausea. She denies any vaginal bleeding or abdnormal discharge. She denies recent fevers , chills, headache or dizziness. She denies recent vomit, diarrhea or constipation. She denies recent dysuria, frequency, urgency or hematuria. She denies recent chest pain or shortness of breath. Allergies: Iodine, PCN, Bactrim Past History - Past Medical History Allergies/Adverse Reactions: Allergies Allergy/AdvReac Type Severity Reaction Status Date / Time iodine Allergy "can't Verified 05/24/19 20:55 breath" Penicillins Allergy "rash" Verified 05/24/19 20:55 sulfamethoxazole Allergy "rash" Verified 05/24/19 20:55 [From Bactrim] trimethoprim [From Bactrim] Allergy Verified 05/24/19 20:55 Home Medications: Ambulatory Orders Oxycodone HCl/Acetaminophen [Percocet 5-325 mg Tablet] 1 - 2 tab PO Q4H PRN #20 tablet MDD 6 07/21/18 Docusate Sodium [Dulcolax Stool Softener] 100 mg PO BID #20 capsule 07/22/18 Metoclopramide HCl [Reglan] 10 mg PO Q8H #6 tablet MDD 3 07/22/18 Cyclobenzaprine HCl 10 mg PO HS #10 tablet 01/22/19 Diclofenac Sodium 75 mg PO BID #20 tablet. 01/22/19 Lidocaine 5% Patch [Lidoderm -] 1 patch TP DAILY #3 patch 03/14/19 Potassium Chloride [K-Dur -] 20 meq PO BID #14 tablet.er 03/14/19 Anemia: Yes Asthma: Yes (inhaler in winter/colds-no recent attack) Cancer: Yes (Osteosarcoma) Cardiac Disorders: No CVA: No COPD: No CHF: No Dementia: No Diabetes: No GI Disorders: No Disorders: No HTN: No Hypercholesterolemia: No Liver Disease: No Seizures: No Thyroid Disease: No - Surgical History Lung Surgery: Yes (tumor removed-right) Orthopedic Surgery: Yes (right knee surgery) - Immunization History Immunization Up to Date: Yes - Psycho Social/Smoking Cessation Hx Smoking History: Never smoked Have you smoked in the past 12 months: No Information on smoking cessation initiated: No Hx Alcohol Use: No Drug/Substance Use Hx: No Substance Use Type: Alcohol Hx Substance Use Treatment: No Review of Systems - Review of Systems Able to Perform ROS?: Yes Comments:: 05/24/19 23:41 GENERAL/CONSTITUTIONAL: No fever or chills. No weakness. HEAD, EYES, EARS, NOSE AND THROAT: No change in vision. No ear pain or discharge. No sore throat. GASTROINTESTINAL: +Abdominal pain. +Nausea. No vomiting, diarrhea or constipation. GENITOURINARY: No dysuria, frequency, or change in urination. CARDIOVASCULAR: No chest pain or shortness of breath. RESPIRATORY: No cough, wheezing, or hemoptysis. MUSCULOSKELETAL: No joint or muscle swelling or pain. No neck or back pain. SKIN: No rash NEUROLOGIC: No headache, vertigo, loss of consciousness, or change in strength/ sensation. ENDOCRINE: No increased thirst. No abnormal weight change. HEMATOLOGIC/LYMPHATIC: No anemia, easy bleeding, or history of blood clots. ALLERGIC/IMMUNOLOGIC: No hives or skin allergy. All Other Systems: Reviewed and Negative *Physical Exam - Vital Signs Last Vital Signs Temp Pulse Resp BP Pulse Ox 98.4 F 88 18 119/51 L 100 05/24/19 20:50 05/24/19 20:50 05/24/19 20:50 05/24/19 20:50 05/24/19 20:50 - Physical Exam 05/24/19 23:41 Constitutional: Awake, alert, oriented. No acute distress. Head: Normocephalic. Atraumatic Eyes: PERRL. EOMI. Conjunctivae are not pale. ENT: Mucous membranes are moist and intact. Posterior pharynx without exudates or erythema. Uvula midline. Neck: Supple. Full ROM. No lymphadenopathy. Cardiovascular: Regular rate. Regular rhythm. S1, S2 regular. Distal pulses are 2+ and symmetric. Pulmonary/Chest: No evidence of respiratory distress. Clear to auscultation bilaterally No wheezing, rales or rhonchi. Abdominal: +Gravid below the umbilicus. Soft and non-distended. There is no tenderness. No rebound, guarding or rigidity. No organomegaly. No palpable masses. Good bowel sounds. Back: No CVA tenderness. Musculoskeletal: No edema. No cyanosis. No clubbing. Full range of motion in all extremities. No calf tenderness. Radial/pedal pulses are intact and 2+ bilaterally Skin: Skin is warm and dry. No petechiae. No purpura. Neurological: Alert and oriented to person, place, and time. Cranial nerves II -XII are grossly intact. Normal speech. Strength is grossly symmetric. No sensory deficits. Psychiatric: Good eye contact. Normal interaction, affect and behavior. ED Treatment Course - LABORATORY CBC & Chemistry Diagram: 05/24/19 21:50 05/24/19 21:50 - ADDITIONAL ORDERS Additional order review: Laboratory Results 05/24/19 05/24/19 21:50 21:50 Sodium 137 Potassium 3.8 Chloride 105 Carbon Dioxide 25 Anion Gap 6 L BUN 10.7 Creatinine 0.6 Est GFR (CKD-EPI)AfAm 143.77 Est GFR (CKD-EPI)NonAf 124.04 Random Glucose 84 Calcium 9.2 Total Bilirubin 0.2 AST 42 H ALT 55 Alkaline Phosphatase 66 Total Protein 6.7 Albumin 3.3 L Urine Color Yellow Urine Appearance Clear Urine pH 7.5 D Ur Specific [place] 1.034 Urine Protein Negative Urine Glucose (UA) Negative Urine Ketones 1+ H Urine Blood Negative Urine Nitrite Negative Urine Bilirubin Negative Urine Urobilinogen 1.0 Ur Leukocyte Esterase Negative 05/24/19 21:50 RBC 4.13 MCV 75.4 L MCHC 32.3 RDW 14.2 MPV 8.6 Neutrophils % 81.9 D Lymphocytes % 12.7 D Monocytes % 4.9 Eosinophils % 0.2 D Basophils % 0.3 Medical Decision Making - Medical Decision Making 05/24/19 23:03 a/p: 29yo female at 16 weeks gestation, follows with dr. Schulz who ate steak earlier today -after eating the steak she had n/v and cramping -denies vaginal bleeding or loss of fluid -pt denies dysuria -denies f/c -no other sick contacts -labs reviewed - will add on beta hcg -will hydrate with ivf hydration, nausea control -will monitor and reassess 05/24/19 23:49 pt states cramping improved with the ivf hydration 05/25/19 00:25 pt feeling better tolerated po intake of juice and crackers discussed brat diet and clear liquids discussed drinking plenty of water answered all quesitons stable for dc to home Discharge - Discharge Information Problems reviewed: Yes Clinical Impression/Diagnosis: Abdominal cramping, Nausea, Condition: Stable Disposition: HOME - Admission No - Follow up/Referral Referrals: Abram Cervantes MD [Primary Care Provider] - Jacey Schulz MD [Staff Physician] - - Patient Discharge Instructions Patient Printed Discharge Instructions: [place] May Improve Nausea Symptoms in , Nausea of (Alternative Therapy) Additional Instructions: Please drink plenty of fluids. Please eat the BRAT diet (bananas, rice, apple sauce, and toast). Please follow up with your PMD and your [employer] PROGRAMMER ANALYST as scheduled. Please return to the ED with any further concerns or complaints. Please drink plenty of water. - Post Discharge Activity
[2019-05-24] MEDS ORDERED: ACETAMINOPHEN INJECTION 100 ML IVPB ONE (23:20)
[2019-05-24] MEDS ORDERED: ONDANSETRON 4 MG/2 ML VIAL ONE (23:20)
== END 2019-05-25 01:00 | disposition home or self-care (01) ==
LOC: JER 20:38
PROC: 3E033GC Introduction of Other Therapeutic Substance into Peripheral Vein, Percutaneous Approach (ICD-10-PCS; principal; 2019-05-24)
PROC: 3E033NZ Introduction of Analgesics, Hypnotics, Sedatives into Peripheral Vein, Percutaneous Approach (ICD-10-PCS; 2019-05-24)
DX: O26.892 Other specified pregnancy related conditions, second trimester (principal); O99.012 Anemia complicating pregnancy, second trimester; R10.2 Pelvic and perineal pain; R11.2 Nausea with vomiting, unspecified; Z85.830 Personal history of malignant neoplasm of bone; Z3A.16 16 weeks gestation of pregnancy; Z88.0 Allergy status to penicillin; Z88.2 Allergy status to sulfonamides; Z88.8 Allergy status to other drugs, medicaments and biological substances
CPT/HCPCS: 36415; 76815; 80053; 81003; 84702; 85025; 87086; 99282-25; J0131; J7030

== ENCOUNTER 2021-03-11 14:07 | Emergency (ER) | payer OTHER ==
[2021-03-11 14:31] VITALS: BMI 31.1
[2021-03-11] MEDS ORDERED: ACETAMINOPHEN 500 MG TABLET (FP) PO ONE (15:15)
[2021-03-11] MEDS ORDERED: ACETAMINOPHEN 325 MG TABLET (FP) ONE (16:24)
[2021-03-11 17:47] VITALS: BP 130/59; PULSE 76; TEMP 98.4
== END 2021-03-11 19:35 | disposition home or self-care (01) ==
LOC: JER 14:07
DX: J06.9 Acute upper respiratory infection, unspecified (principal)
CPT/HCPCS: 71045-TC-FY; 87804; 87807; 93005; 93010; 99284-25; C9803; U0003; U0005

== ENCOUNTER 2022-01-27 23:41 | Emergency (ER) | payer OTHER ==
[2022-01-28 00:10] VITALS: BP 130/76; PULSE 94; RESP 18; TEMP 97.9; BMI 33.4
[2022-01-28 01:49] LABS: BASO % 0.3 % (0-2.0); EOS % 0.2 % (0-4.5); HEMATOCRIT 34.5 % (32.4-45.2); HEMOGLOBIN 10.9 GM/dL (10.7-15.3); LYMPH % 17.2 % (8-40); MCH 24.2 pg (25.7-33.7); MCHC 31.5 g/dl (32.0-36.0); MEAN CELL VOLUME 76.8 fl (80-96); MEAN PLT VOLUME 8.8 fl (7.5-11.1); MONO % 6.9 % (3.8-10.2); NEUT % 75.4 % (42.8-82.8); PLATELET COUNT 235 10^3/uL (134-434); RBC 4.49 M/mm3 (3.60-5.2); RDW 14.2 % (11.6-15.6); WHITE BLOOD COUNT 6.1 K/mm3 (4.0-10.0)
[2022-01-28 01:53] LABS: URINE APPEARANCE CLEAR; URINE BILIRUBIN NEGATIVE (NEGATIVE); URINE COLOR YELLOW; URINE GLUCOSE (UA) NEGATIVE (NEGATIVE); URINE KETONE TRACE (NEGATIVE); URINE LEUK ESTERASE NEGATIVE (NEGATIVE); URINE NITRITE NEGATIVE (NEGATIVE); URINE PROTEIN NEGATIVE (NEGATIVE)
[2022-01-28 01:57] LABS: INR 1.02 (0.83-1.09); PROTHROMBIN TIME (PATIENT) 11.7 SEC (9.7-13.0)
[2022-01-28 02:00] LABS: ACTIVATED PTT 25.1 SECONDS (25.2-36.5)
[2022-01-28 02:09] LABS: ALBUMIN 3.6 g/dl (3.4-5.0); BLOOD UREA NITROGEN 18.5 mg/dL (7-18); CALCIUM 8.9 mg/dL (8.5-10.1)
[2022-01-28 02:12] LABS: CREATININE 1.1 mg/dL (0.55-1.3)
[2022-01-28 02:14] LABS: BILIRUBIN,TOTAL 0.3 mg/dL (0.2-1); TOT PROT 6.9 g/dl (6.4-8.2)
[2022-01-28] MEDS ORDERED: DEXAMETHASONE SOD PHOSPHATE 10 MG/1 ML VIAL IVPUSH ONE (02:19)
[2022-01-28] MEDS ORDERED: DEXAMETHASONE SOD PHOSPHATE 10 MG/1 ML VIAL ONE (02:27)
== END 2022-01-28 03:16 | disposition home or self-care (01) ==
LOC: JER 23:41
PROC: 3E0333Z Introduction of Anti-inflammatory into Peripheral Vein, Percutaneous Approach (ICD-10-PCS; principal; 2022-01-27)
PROC: 3E033GC Introduction of Other Therapeutic Substance into Peripheral Vein, Percutaneous Approach (ICD-10-PCS; 2022-01-27)
DX: T78.40XA Allergy, unspecified, initial encounter (principal)
CPT/HCPCS: 36415; 80053; 81003; 85025; 85610; 85730; 87086; 99284-25; J1100

== ENCOUNTER 2023-09-29 16:25 | Emergency (ER) | payer OTHER ==
[2023-09-29 16:35] VITALS: BP 105/56; PULSE 82; RESP 17; TEMP 98.5; BMI 29.6
== END 2023-09-29 17:36 | disposition left against medical advice (07) ==
LOC: JER 16:25
DX: R11.2 Nausea with vomiting, unspecified (principal); R19.7 Diarrhea, unspecified
CPT/HCPCS: 99281-25